=== PATIENT | male | born 1985 | race Hispanic/Latino ===

== ENCOUNTER 2018-10-17 14:33 | Emergency (ER) | payer OTHER ==
[~2018-10-17 14:33] MED LIST: CIPR-278 PO; METR500T PO; TRAM50TA2 PO
[2018-10-17] MEDS ORDERED: CEPHALEXIN 500 MG CAPSULE ONE (14:59)
[2018-10-17] MEDS ORDERED: SULFAMETHOX-TMP DS 800/160 TAB ONE (15:00)
[2018-10-17] MEDS ORDERED: HYDROCODONE/ACETAMINOPHEN 10/325 MG TAB ONE (15:00)
[2018-10-17] MEDS ORDERED: LIDOCAINE HCL/EPINEPHRINE 50 ML VIAL IJ ONE (15:02)
== END 2018-10-17 16:12 | disposition home or self-care (01) ==
LOC: EDH 14:33
DX: L03.221 Cellulitis of neck (principal); L02.11 Cutaneous abscess of neck; Z91.013 Allergy to seafood
CPT/HCPCS: 10061

== ENCOUNTER 2021-01-05 23:51 | Emergency (ER) | payer OTHER ==
[2021-01-06] MEDS ORDERED: SODIUM CHLORIDE 0.9% 1000ML 1,000 ML IV ONE (01:04)
[2021-01-06] MEDS ORDERED: ACETAMINOPHEN EXTRA STRENGTH 500 MG TABLET ONE (01:04)
[2021-01-06 01:33] LABS: BASOPHILS % (AUTO) 0.2 % (0.0-5.0); EOSINOPHILS % (AUTO) 0.3 % (0.0-8.0); HEMATOCRIT 39.3 % (42-54); LYMPHOCYTES % (AUTO) 15.8 % (21.0-51.0); MEAN CORPUSCULAR HEMOGLOBIN 28.3 pg (27.0-33.0); MEAN CORPUSCULAR HGB CONC 33.6 g/dL (32.0-36.0); MEAN CORPUSCULAR VOLUME 84.3 fL (79-99); MONOCYTES % (AUTO) 7.4 % (3.0-13.0); NEUTROPHILS % (AUTO) 75.9 % (40.0-77.0); PLATELET COUNT (AUTO) 342 K/uL (130-400); RED BLOOD CELL COUNT(AUTO) 4.66 MIL/uL (4.50-6.20)
[2021-01-06 01:43] LABS: CREATININE 0.9 mg/dL (0.5-1.5); POTASSIUM 3.2 mmol/L (3.5-5.1)
[2021-01-06 01:48] LABS: ALBUMIN 2.9 g/dL (3.5-5.0); BILIRUBIN,TOTAL 0.4 mg/dL (0.2-1.0); TOTAL PROTEIN, SERUM 8.5 g/dL (6.0-8.3)
[2021-01-06] MEDS ORDERED: KETOROLAC TROMETHAMINE 30MG/ML ONE (02:02)
[2021-01-06] MEDS ORDERED: POTASSIUM BICARB/CIT AC 25 MEQ TABLET.EFF ONE (02:02)
[2021-01-06 02:08] LABS: APPEARANCE,URINE Clear (CLEAR); BILIRUBIN,URINE Negative (NEGATIVE); COLOR,URINE Yellow (YELLOW); GLUCOSE, URINE (UA) Negative (NEGATIVE); KETONES,URINE Negative (NEGATIVE); LEUKOCYTE ESTERASE ,URINE Trace (NEGATIVE); NITRATE,URINE Negative (NEGATIVE); OCCULT BLOOD,URINE Trace (NEGATIVE); PH,URINE 6.5 (5.0-8.0); PROTEIN,URINE Trace mg/dL (NEGATIVE)
[2021-01-06] MEDS ORDERED: AMPICILLIN SODIUM/SULBACTAM NA 1.5GM VIAL ONE (02:10)
[2021-01-06 02:22] LABS: BACTERIA,URINE Rare /HPF (None Seen); SQUAMOUS EPITHELIAL CELL,UR 0-2 /HPF (0-2); WBC,URINE 0-1 /HPF (0-1)
== END 2021-01-06 02:48 | disposition home or self-care (01) ==
LOC: EDH 23:51
DX: J06.0 Acute laryngopharyngitis (principal); E87.6 Hypokalemia; H66.003 Acute suppurative otitis media without spontaneous rupture of ear drum, bilateral; R42 Dizziness and giddiness; Z20.822 Contact with and (suspected) exposure to COVID-19; Z91.013 Allergy to seafood; Z72.0 Tobacco use; Z98.890 Other specified postprocedural states
CPT/HCPCS: 36415; 80053; 81001; 83605; 85025; 87040 ×2; 87426; 87880; 96361; 96365; 96375; 99284; J0295; J1885; J7030; U0003

== ENCOUNTER → 2021-08-18 | Emergency (ER) | payer OTHER, SELFPAY ==
[~2021-08-18] VITALS: Ht 160 cm; Wt 177.8 kg
[~2021-08-18] MED LIST changes: +CEPH500B PO; +CEPHALEXIN 500 MG CAPSULE PO ONE; +SULF1TAB42 PO; +SULFAMETHOX-TMP DS 800/160 TAB PO SCH
[2021-08-18 17:19] VITALS: BP 146/100
[2021-08-18 18:03] LABS: BASOPHILS % (AUTO) 0.2 % (0.0-5.0); EOSINOPHILS % (AUTO) 0.7 % (0.0-8.0); LYMPHOCYTES % (AUTO) 18.3 % (21.0-51.0); MEAN CORPUSCULAR HEMOGLOBIN 27.6 pg (27.0-33.0); MEAN CORPUSCULAR HGB CONC 33.4 g/dL (32.0-36.0); MEAN CORPUSCULAR VOLUME 82.6 fL (79-99); MONOCYTES % (AUTO) 8.9 % (3.0-13.0); NEUTROPHILS % (AUTO) 71.5 % (40.0-77.0); PLATELET COUNT (AUTO) 267 K/uL (130-400); WHITE BLOOD COUNT (AUTO) 8.5 K/uL (4.8-10.8)
[2021-08-18 18:12] LABS: CREATININE 0.7 mg/dL (0.5-1.5); POTASSIUM 3.2 mmol/L (3.5-5.1)
== END | disposition home or self-care (01) ==
LOC: EDH 17:18
DX: L03.115 Cellulitis of right lower limb (principal); Z91.013 Allergy to seafood
CPT/HCPCS: 36415; 80048; 83605; 85025; 87040; 93971

== ENCOUNTER 2021-12-13 23:41 | Inpatient (IN) | payer SELFPAY ==
[~2021-12-13] VITALS: Ht 160 cm; Wt 181.0 kg
[~2021-12-13 23:41] MED LIST changes: -CEPHALEXIN 500 MG CAPSULE PO ONE; -SULFAMETHOX-TMP DS 800/160 TAB PO SCH
[2021-12-14 00:36] LABS: BASOPHILS % (AUTO) 0.3 % (0.0-5.0); EOSINOPHILS % (AUTO) 2.3 % (0.0-8.0); HEMATOCRIT 39.1 % (42-54); LYMPHOCYTES % (AUTO) 18.6 % (21.0-51.0); MEAN CORPUSCULAR HEMOGLOBIN 28.7 pg (27.0-33.0); MEAN CORPUSCULAR VOLUME 84.3 fL (79-99); MONOCYTES % (AUTO) 9.8 % (3.0-13.0); NEUTROPHILS % (AUTO) 68.6 % (40.0-77.0); PLATELET COUNT (AUTO) 302 K/uL (130-400); RED BLOOD CELL COUNT(AUTO) 4.64 MIL/uL (4.50-6.20); RED CELL DISTRIBUTION WIDTH 14.4 % (11.0-15.5); WHITE BLOOD COUNT (AUTO) 9.5 K/uL (4.8-10.8)
[2021-12-14 00:40] LABS: APPEARANCE,URINE Clear (CLEAR); BILIRUBIN,URINE Negative (NEGATIVE); COLOR,URINE Yellow (YELLOW); GLUCOSE, URINE (UA) Negative (NEGATIVE); KETONES,URINE Negative (NEGATIVE); LEUKOCYTE ESTERASE ,URINE Negative (NEGATIVE); NITRATE,URINE Negative (NEGATIVE); OCCULT BLOOD,URINE Nonhemolyzed Trace (NEGATIVE); PROTEIN,URINE POS 1+ mg/dL (NEGATIVE)
[2021-12-14 00:43] LABS: CREATININE 0.8 mg/dL (0.5-1.5)
[2021-12-14 00:48] LABS: ALBUMIN 2.8 g/dL (3.5-5.0); BILIRUBIN,TOTAL 0.3 mg/dL (0.2-1.0); TOTAL PROTEIN, SERUM 8.5 g/dL (6.0-8.3)
[2021-12-14 00:59] LABS: BACTERIA,URINE None Seen /HPF (None Seen); MUCUS,URINE Rare LPF (None Seen); RBC,URINE 0-1 /HPF (0-1); SQUAMOUS EPITHELIAL CELL,UR Few /HPF (0-2); WBC,URINE None Seen /HPF (0-1)
[2021-12-14] MEDS ORDERED: POTASSIUM BICARB/CIT AC 25 MEQ TABLET.EFF ONE (01:08)
[2021-12-14] MEDS ORDERED: CEFTRIAXONE 2GM VIAL ONE (01:09)
[2021-12-14] MEDS ORDERED: CEFTRIAXONE 2GM VIAL IVP ONE (01:10)
[2021-12-14] MEDS ORDERED: POTASSIUM BICARB/CIT AC 25 MEQ TABLET.EFF PO ONE (01:30)
[2021-12-14] MEDS ORDERED: ONDANSETRON 4MG INJ IV PRN (04:00)
[2021-12-14] MEDS ORDERED: ACETAMINOPHEN 325 MG TAB PO PRN ×2 (04:00)
[2021-12-14] MEDS ORDERED: MORPHINE 2 MG SYG IV PRN (04:00)
[2021-12-14] MEDS: 0.9%NACL 1000ML 1,000 ML IV SCH ×2 (05:26→14:42)
[2021-12-14 05:49] LABS: ALBUMIN 2.6 g/dL (3.5-5.0); BILIRUBIN,TOTAL 0.2 mg/dL (0.2-1.0); CREATININE 0.8 mg/dL (0.5-1.5); POTASSIUM 3.5 mmol/L (3.5-5.1); TOTAL PROTEIN, SERUM 7.9 g/dL (6.0-8.3)
[2021-12-14] MEDS: ZOSYN 3.375GM+NS 50ML 50 ML IV SCH ×3 (09:53→22:03)
[2021-12-14 17:25] VITALS: BP 120/67
[2021-12-14 18:36] LABS: HEMATOCRIT 35.6 % (42-54); MEAN CORPUSCULAR HEMOGLOBIN 28.2 pg (27.0-33.0); MEAN CORPUSCULAR HGB CONC 33.1 g/dL (32.0-36.0); MEAN CORPUSCULAR VOLUME 85.2 fL (79-99); RED BLOOD CELL COUNT(AUTO) 4.18 MIL/uL (4.50-6.20); RED CELL DISTRIBUTION WIDTH 14.3 % (11.0-15.5); WHITE BLOOD COUNT (AUTO) 8.6 K/uL (4.8-10.8)
[2021-12-14 20:00] VITALS: BP 122/70
[2021-12-15] VITALS: BP 116/69
[2021-12-15] MEDS: 0.9%NACL 1000ML 1,000 ML IV SCH ×4 (00:39→23:28)
[2021-12-15 04:00] VITALS: BP 112/68
[2021-12-15 05:09] LABS: BASOPHILS % (AUTO) 0.2 % (0.0-5.0); EOSINOPHILS % (AUTO) 2.3 % (0.0-8.0); HEMATOCRIT 36.1 % (42-54); LYMPHOCYTES % (AUTO) 28.2 % (21.0-51.0); MEAN CORPUSCULAR HEMOGLOBIN 27.6 pg (27.0-33.0); MEAN CORPUSCULAR HGB CONC 32.7 g/dL (32.0-36.0); MEAN CORPUSCULAR VOLUME 84.3 fL (79-99); MONOCYTES % (AUTO) 9.1 % (3.0-13.0); NEUTROPHILS % (AUTO) 59.8 % (40.0-77.0); PLATELET COUNT (AUTO) 337 K/uL (130-400); RED BLOOD CELL COUNT(AUTO) 4.28 MIL/uL (4.50-6.20); RED CELL DISTRIBUTION WIDTH 14.2 % (11.0-15.5); WHITE BLOOD COUNT (AUTO) 8.4 K/uL (4.8-10.8)
[2021-12-15] MEDS: ZOSYN 3.375GM+NS 50ML 50 ML IV SCH ×2 (05:19→14:18)
[2021-12-15 05:22] LABS: CREATININE 0.8 mg/dL (0.5-1.5); POTASSIUM 3.2 mmol/L (3.5-5.1)
[2021-12-15 08:00] VITALS: BP 107/69
[2021-12-15] MEDS ORDERED: POTASSIUM CHLORIDE 20MEQ/100ML 100 ML IV PRN (09:00)
[2021-12-15] MEDS ORDERED: LIDOCAINE HCL-MPF 1% 2ML VIAL IV PRN (09:00)
[2021-12-15] MEDS ORDERED: POTASSIUM CHLORIDE 10% ELIXIR 20 MEQ/15 ML UDCUP PO PRN (09:00)
[2021-12-15] MEDS: KCL 20 MEQ ERTAB PO PRN ×3 (11:48→16:42)
[2021-12-15 12:00] VITALS: BP 120/79
[2021-12-15] MEDS ORDERED: VANCOMYCIN PROTOCOL PER PHARMACY IV SCH (15:00)
[2021-12-15] MEDS ORDERED: VANCOMYCIN 1.75GM/250ML NS IV SCH ×2 (15:20)
[2021-12-15] MEDS ORDERED: COMPOUND IV REFRIGERATED 1 EACH IVSOLN MISC PRN (15:30)
[2021-12-15 16:00] VITALS: BP 129/82
[2021-12-15 20:06] VITALS: BP 110/63
[2021-12-16] VITALS: BP 146/62
[2021-12-16] MEDS: VANCOMYCIN 1G 1.75 GM in 0.9% NACL 250ML 250 ML IV SCH ×3 (03:29→21:42)
[2021-12-16 04:00] VITALS: BP 115/57
[2021-12-16] MEDS: 0.9%NACL 1000ML 1,000 ML IV SCH ×2 (05:13→16:00)
[2021-12-16] MEDS: KCL 20 MEQ ERTAB PO PRN ×3 (05:43→11:45)
[2021-12-16 07:00] VITALS: BP_SYST 103; BP_SYST 117; BP_DIAS 50; BP_DIAS 64
[2021-12-16 11:00] VITALS: BP 126/61
[2021-12-16] MEDS: POTASSIUM CHLORIDE 10% ELIXIR 20 MEQ/15 ML UDCUP PO SCH (11:00)
[2021-12-16 15:00] VITALS: BP 109/43
[2021-12-16 22:05] VITALS: BP 149/87
[2021-12-17 01:38] VITALS: BP 102/69
[2021-12-17 04:55] VITALS: BP 128/72
[2021-12-17] MEDS: KCL 20 MEQ ERTAB PO PRN (06:09)
[2021-12-17 07:30] VITALS: BP 116/72
[2021-12-17] MEDS: VANCOMYCIN 1G 1.75 GM in 0.9% NACL 250ML 250 ML IV SCH (10:52)
[2021-12-17] MEDS: POTASSIUM CHLORIDE 10% ELIXIR 20 MEQ/15 ML UDCUP PO SCH (10:58)
[2021-12-17 11:00] VITALS: BP 104/80
== END 2021-12-17 16:16 | disposition home or self-care (01) | DRG 602 ==
LOC: EDH 23:41 → EDHIP 23:42 → 3DH 12-14 17:25
PROVIDERS: ADMIT Hospitalist; ATTEND Hospitalist
DX: L03.115 Cellulitis of right lower limb (principal); E43 Unspecified severe protein-calorie malnutrition; Z68.45 Body mass index [BMI] 70 or greater, adult; E87.6 Hypokalemia; E66.01 Morbid (severe) obesity due to excess calories; Z88.8 Allergy status to other drugs, medicaments and biological substances; Z82.5 Family history of asthma and other chronic lower respiratory diseases
CPT/HCPCS: 36415; 80048; 80053; 80202; 81001; 82948; 83605; 84132; 85025; 85027; 85651; 87040; 93971; G0378; J0696; J2543; J3370; J7030; J7050

== ENCOUNTER 2023-04-19 19:05 | Inpatient (IN) | payer OTHER ==
[~2023-04-19] VITALS: Ht 160 cm; Wt 162.1 kg
[~2023-04-19 19:05] MED LIST changes: +0.9%NACL 50ML IV SCH; -CEPH500B PO; -CIPR-278 PO; -METR500T PO; -SULF1TAB42 PO; -TRAM50TA2 PO
[2023-04-19] MEDS ORDERED: VANCOMYCIN KIT 1 GM/250 ML IV.KIT IV ONE (20:00)
[2023-04-19] MEDS ORDERED: ZOSYN 3.375GM +NS 50ML IVPB ONE (20:00)
[2023-04-19] MEDS ORDERED: 0.9%NACL 1000ML 1,000 ML IV ONE (20:00)
[2023-04-19 20:25] LABS: BASOPHILS # (AUTO) 0.09 K/uL (0.00-0.20); BASOPHILS % (AUTO) 0.7 % (0.0-5.0); EOSINOPHILS # (AUTO) 0.07 K/uL (0.00-0.70); EOSINOPHILS % (AUTO) 0.5 % (0.0-8.0); HEMATOCRIT 33.3 % (42-54); IMMATURE GRANULOCYTE ABSOLUTE 0.21 K/uL (0-1); LYMPHOCYTES # (AUTO) 0.4 K/uL (1.0-4.8); LYMPHOCYTES % (AUTO) 2.8 % (21.0-51.0); MEAN CORPUSCULAR HGB CONC 34.5 g/dL (32.0-36.0); MEAN CORPUSCULAR VOLUME 83.9 fL (79-99); MONOCYTES # (AUTO) 0.8 K/uL (0.1-1.0); MONOCYTES % (AUTO) 5.4 % (3.0-13.0); NEUTROPHILS # (AUTO) 12.3 K/uL (1.8-7.7); NEUTROPHILS % (AUTO) 89.1 % (40.0-77.0); PLATELET COUNT (AUTO) 276 K/uL (130-400); RED BLOOD CELL COUNT(AUTO) 3.97 MIL/uL (4.50-6.20); RED CELL DISTRIBUTION WIDTH 13.8 % (11.0-15.5); WHITE BLOOD COUNT (AUTO) 13.8 K/uL (4.8-10.8)
[2023-04-19 20:35] LABS: CREATININE 2.6 mg/dL (0.5-1.5)
[2023-04-19 20:39] LABS: BILIRUBIN,TOTAL 0.6 mg/dL (0.2-1.0); TOTAL PROTEIN, SERUM 7.2 g/dL (6.0-8.3)
[2023-04-19] MEDS ORDERED: POTASSIUM BICARB/CIT AC 25 MEQ TABLET.EFF PO ONE (21:30)
[2023-04-19] MEDS ORDERED: MORPHINE 4 MG SYG IVP ONE (22:00)
[2023-04-19] MEDS ORDERED: KETOROLAC 60 MG VIAL (30MG/ML) IM ONE (22:00)
[2023-04-19] MEDS ORDERED: ONDANSETRON 4MG INJ IVP ONE (22:00)
[2023-04-20] VITALS (68 sets, daily range): BP systolic 88–148; BP diastolic 41–78; PULSE 90–134; RESP 14–90; O2SAT 92–98
[2023-04-20] MEDS ORDERED: GLUCAGON 1MG KIT 1 MG ML IM PRN
[2023-04-20] MEDS ORDERED: DEXTROSE 50%-WATER 50 ML DISP.SYRIN IV PRN
[2023-04-20] MEDS ORDERED: LACTATED RINGERS 1000ML 1,000 ML IV SCH
[2023-04-20] MEDS ORDERED: ZOSYN 3.375GM +NS 50ML IVPB SCH
[2023-04-20] MEDS ORDERED: VANCOMYCIN PROTOCOL PER PHARMACY IV SCH
[2023-04-20 02:50] LABS: SARS-CoV-2, RNA, NAAT NEGATIVE SARS CoV-2 (NEGATIVE)
[2023-04-20] MEDS: MORPHINE 2 MG SYG IVP PRN ×3 (03:27→21:32)
[2023-04-20 03:44] LABS: BASOPHILS % (AUTO) 0.7 % (0.0-5.0); EOSINOPHILS # (AUTO) 0.11 K/uL (0.00-0.70); EOSINOPHILS % (AUTO) 0.8 % (0.0-8.0); HEMATOCRIT 33.6 % (42-54); IMMATURE GRANULOCYTE ABSOLUTE 0.12 K/uL (0-1); LYMPHOCYTES # (AUTO) 0.5 K/uL (1.0-4.8); LYMPHOCYTES % (AUTO) 3.7 % (21.0-51.0); MEAN CORPUSCULAR HEMOGLOBIN 29.1 pg (27.0-33.0); MEAN CORPUSCULAR HGB CONC 34.2 g/dL (32.0-36.0); MEAN CORPUSCULAR VOLUME 85.1 fL (79-99); MONOCYTES # (AUTO) 1.2 K/uL (0.1-1.0); MONOCYTES % (AUTO) 8.7 % (3.0-13.0); NEUTROPHILS # (AUTO) 11.8 K/uL (1.8-7.7); NEUTROPHILS % (AUTO) 85.2 % (40.0-77.0); PLATELET COUNT (AUTO) 284 K/uL (130-400); RED BLOOD CELL COUNT(AUTO) 3.95 MIL/uL (4.50-6.20); RED CELL DISTRIBUTION WIDTH 14.1 % (11.0-15.5); WHITE BLOOD COUNT (AUTO) 13.9 K/uL (4.8-10.8)
[2023-04-20 03:57] LABS: INR 1.19 (0.85-1.15); PROTHROMBIN TIME 13.6 SEC (9.6-11.6)
[2023-04-20 03:58] LABS: PARTIAL THROMBOPLASTIN TIME 28.8 SEC (26.3-35.5)
[2023-04-20 04:04] LABS: BILIRUBIN,TOTAL 0.7 mg/dL (0.2-1.0); CREATININE 3.5 mg/dL (0.5-1.5); POTASSIUM 3.3 mmol/L (3.5-5.1); TOTAL PROTEIN, SERUM 6.4 g/dL (6.0-8.3)
[2023-04-20] MEDS: POTASSIUM CHLORIDE 20MEQ/100ML 100 ML IV PRN ×2 (04:14→06:03)
[2023-04-20] MEDS ORDERED: 0.9% NACL 500ML IV.SOLN 500 ML IV STA (05:35)
[2023-04-20] MEDS: 0.9%NACL 1000ML 1,000 ML IV SCH ×2 (05:43→14:08)
[2023-04-20] MEDS: INSULIN HUMULIN R 100 UNIT/ML 3ML SQ SCH ×4 (06:15→21:00)
[2023-04-20] MEDS ORDERED: PROPOFOL 10 MG/ML 20ML VIAL IV ONE ×2 (07:27→07:51)
[2023-04-20] MEDS ORDERED: MIDAZOLAM HCL 1 MG/ML 2ML VIAL ONE (07:27)
[2023-04-20] MEDS ORDERED: ONDANSETRON 4MG INJ ONE ×2 (07:28→09:16)
[2023-04-20] MEDS ORDERED: ROCURONIUM 10MG/1ML SYR 10 MG/ML ML ONE (07:28)
[2023-04-20] MEDS ORDERED: FENTANYL CITRATE PF 50 MCG/1 ML 2ML VIAL ONE (07:50)
[2023-04-20] MEDS ORDERED: PHENYLEPHRINE HCL 10 MG/ML 1ML VIAL IV ONE (08:23)
[2023-04-20] MEDS ORDERED: BUPIVACAINE/PF 0.25% 30ML VIAL IJ ONE (08:27)
[2023-04-20] MEDS ORDERED: COMPOUND IV REFRIGERATED 1 EACH IVSOLN MISC PRN (08:30)
[2023-04-20] MEDS ORDERED: SUGAMMADEX SODIUM 200 MG/2 ML VIAL IV ONE (08:48)
[2023-04-20] MEDS ORDERED: VANCOMYCIN 2GM/500 ML BAG 500 ML IV ONE (09:00)
[2023-04-20] MEDS ORDERED: MEPERIDINE-PF 25 MG/ML SYG ONE (09:16)
[2023-04-20] MEDS ORDERED: IPRATROPIUM/ALBUTEROL SULFATE 3 ML SOLUTION IH ONE ×2 (09:29→09:30)
[2023-04-20] MEDS ORDERED: CLINDAMYCIN IVPB 600MG/50ML 50 ML IV ONE (09:30)
[2023-04-20 09:42] LABS: HEMOGLOBIN A1C 5.9 % (4.0-6.0)
[2023-04-20 10:08] LABS: CRP QUANTITATIVE 394.1 mg/L (0.00-9.0)
[2023-04-20] MEDS ORDERED: 0.9%NACL 1000ML 1,000 ML IV SCH (11:30)
[2023-04-20] MEDS ORDERED: NOREPINEPHRIN 4MG/NS 250ML 250 ML IV SCH (12:00)
[2023-04-20] MEDS: MEROPENEM 500 MG in 0.9%NACL 100ML 100 ML IV SCH ×2 (13:06→21:04)
[2023-04-20] MEDS: ZYVOX 600 MG TAB PO SCH (13:21)
[2023-04-20] MEDS: MAGNESIUM 2GM PREMIX 50ML 50 ML IV PRN ×2 (13:21→21:33)
[2023-04-20] MEDS ORDERED: FLUCONAZOLE 200 MG/NS 100 ML IV SCH (14:00)
[2023-04-20 15:00] LABS: BILIRUBIN,URINE NEGATIVE (NEGATIVE); GLUCOSE, URINE (UA) 70 mg/dL (NEGATIVE); KETONES,URINE NEGATIVE (NEGATIVE); LEUKOCYTE ESTERASE ,URINE 25 Leu/uL (NEGATIVE); NITRATE,URINE NEGATIVE (NEGATIVE); OCCULT BLOOD,URINE LARGE (NEGATIVE); PH,URINE 5.5 (5.0-8.0); PROTEIN,URINE 100 mg/dL (NEGATIVE); UROBILINOGEN,URINE 3 mg/dL (0.2-1.0)
[2023-04-20 15:03] LABS: CREATININE,URINE RANDOM 217 mg/dL (30-135); SODIUM,URINE RANDOM 41 mmol/l (40-220)
[2023-04-20] MEDS: BENZOCAINE/MENTH/CETYLPYRD CL 1 EACH LOZENGE MM PRN ×2 (15:06→21:32)
[2023-04-20 15:08] LABS: ADD UA MICROSCOPIC YES; APPEARANCE,URINE CLOUDY (CLEAR); COLOR,URINE BROWN (YELLOW)
[2023-04-20 15:22] LABS: BACTERIA,URINE MOD /HPF (None Seen); MUCUS,URINE RARE LPF (None Seen); RBC,URINE 51-100 /HPF (0-1); SQUAMOUS EPITHELIAL CELL,UR MANY /HPF (0-2); WBC,URINE 51-100 /HPF (0-1)
[2023-04-20 18:54] LABS: MAGNESIUM 1.9 mg/dL (1.80-2.40); POTASSIUM 3.4 mmol/L (3.5-5.1)
[2023-04-21] VITALS (36 sets, daily range): BP systolic 92–145; BP diastolic 41–100; PULSE 93–115; RESP 12–25; O2SAT 97–99
[2023-04-21] MEDS: 0.9%NACL 1000ML 1,000 ML IV SCH ×3 (00:55→20:46)
[2023-04-21] MEDS: ZYVOX 600 MG TAB PO SCH ×2 (02:09→13:42)
[2023-04-21 04:39] LABS: BASOPHILS # (AUTO) 0.08 K/uL (0.00-0.20); BASOPHILS % (AUTO) 0.7 % (0.0-5.0); EOSINOPHILS # (AUTO) 0.05 K/uL (0.00-0.70); EOSINOPHILS % (AUTO) 0.5 % (0.0-8.0); HEMATOCRIT 30.5 % (42-54); IMMATURE GRANULOCYTE ABSOLUTE 0.08 K/uL (0-1); LYMPHOCYTES # (AUTO) 0.5 K/uL (1.0-4.8); LYMPHOCYTES % (AUTO) 4.4 % (21.0-51.0); MEAN CORPUSCULAR HEMOGLOBIN 28.4 pg (27.0-33.0); MEAN CORPUSCULAR HGB CONC 32.5 g/dL (32.0-36.0); MEAN CORPUSCULAR VOLUME 87.4 fL (79-99); MONOCYTES # (AUTO) 0.8 K/uL (0.1-1.0); MONOCYTES % (AUTO) 7.5 % (3.0-13.0); NEUTROPHILS # (AUTO) 9.4 K/uL (1.8-7.7); NEUTROPHILS % (AUTO) 86.2 % (40.0-77.0); PLATELET COUNT (AUTO) 275 K/uL (130-400); RED BLOOD CELL COUNT(AUTO) 3.49 MIL/uL (4.50-6.20); RED CELL DISTRIBUTION WIDTH 15.3 % (11.0-15.5); WHITE BLOOD COUNT (AUTO) 10.9 K/uL (4.8-10.8)
[2023-04-21 05:05] LABS: ALBUMIN 1.7 g/dL (3.5-5.0); BILIRUBIN,TOTAL 0.6 mg/dL (0.2-1.0); CREATININE 4.3 mg/dL (0.5-1.5); MAGNESIUM 2.2 mg/dL (1.80-2.40); PHOSPHORUS 2.9 mg/dL (2.5-4.9); POTASSIUM 3.4 mmol/L (3.5-5.1); THYROID STIMULATING HORMONE 2.57 uIU/mL (0.36-3.74); TOTAL PROTEIN, SERUM 6.8 g/dL (6.0-8.3)
[2023-04-21 05:26] LABS: CRP QUANTITATIVE 357.5 mg/L (0.00-9.0)
[2023-04-21] MEDS: INSULIN HUMULIN R 100 UNIT/ML 3ML SQ SCH ×4 (07:30→21:00)
[2023-04-21 07:32] LABS: INR 1.06 (0.85-1.15); PROTHROMBIN TIME 12.2 SEC (9.6-11.6)
[2023-04-21] MEDS ORDERED: VANCOMYCIN 1.25 GM/250 ML BAG 250 ML IV SCH (09:00)
[2023-04-21 09:38] LABS: ABG BASE EXCESS -6.1 mmol/L (-2.0-3.0); ABG HCO3 18.4 mmol/L (21.0-28.0); ABG OXYGEN SATURATION 96.7 % (95.0-99.0); ABG PCO2 34 mmHg (35-48); ABG PH 7.353 (7.350-7.450); PO2, ARTERIAL BG 91.4 mmHg (83.0-108.0); VENT MODE, BG 2L NC (ROOM AIR)
[2023-04-21] MEDS: Vitamin B Complex/Vit C/Folic Acid PO SCH (09:44)
[2023-04-21] MEDS: FLUCONAZOLE 200 MG/NS 100 ML 100 ML IV SCH (09:44)
[2023-04-21] MEDS: PANTOPRAZOLE 40 MG/VIAL IVP SCH (09:44)
[2023-04-21] MEDS: MEROPENEM 500 MG in 0.9%NACL 100ML 100 ML IV SCH ×2 (09:45→22:02)
[2023-04-21] MEDS: ENOXAPARIN SODIUM 30 MG/0.3 ML SQ SCH (09:45)
[2023-04-21] MEDS ORDERED: SODIUM BICARB 8.4% 50ML SYRINGE IVP SCH (10:30)
[2023-04-21] MEDS ORDERED: SODIUM BICARB 50MEQ 50ML VIAL IV ONE (11:00)
[2023-04-21] MEDS: ONDANSETRON 4MG INJ IVP PRN ×2 (12:12→22:06)
[2023-04-22] VITALS (34 sets, daily range): BP systolic 82–151; BP diastolic 37–90; PULSE 79–128; RESP 11–29; O2SAT 97–99
[2023-04-22] MEDS: ZYVOX 600 MG TAB PO SCH (02:30)
[2023-04-22 04:16] LABS: BASOPHILS # (AUTO) 0.08 K/uL (0.00-0.20); BASOPHILS % (AUTO) 0.6 % (0.0-5.0); EOSINOPHILS # (AUTO) 0.02 K/uL (0.00-0.70); EOSINOPHILS % (AUTO) 0.1 % (0.0-8.0); HEMATOCRIT 29.8 % (42-54); IMMATURE GRANULOCYTE ABSOLUTE 0.37 K/uL (0-1); LYMPHOCYTES # (AUTO) 0.8 K/uL (1.0-4.8); LYMPHOCYTES % (AUTO) 5.6 % (21.0-51.0); MEAN CORPUSCULAR HEMOGLOBIN 28.7 pg (27.0-33.0); MEAN CORPUSCULAR HGB CONC 33.6 g/dL (32.0-36.0); MEAN CORPUSCULAR VOLUME 85.4 fL (79-99); MONOCYTES % (AUTO) 6.9 % (3.0-13.0); NEUTROPHILS # (AUTO) 11.8 K/uL (1.8-7.7); NEUTROPHILS % (AUTO) 84.2 % (40.0-77.0); PLATELET COUNT (AUTO) 321 K/uL (130-400); RED BLOOD CELL COUNT(AUTO) 3.49 MIL/uL (4.50-6.20); RED CELL DISTRIBUTION WIDTH 15.3 % (11.0-15.5)
[2023-04-22] MEDS: INSULIN HUMULIN R 100 UNIT/ML 3ML SQ SCH ×4 (04:16→21:00)
[2023-04-22 04:35] LABS: ALBUMIN 1.6 g/dL (3.5-5.0); BILIRUBIN,TOTAL 0.8 mg/dL (0.2-1.0); CREATININE 3.4 mg/dL (0.5-1.5); MAGNESIUM 2.6 mg/dL (1.80-2.40); TOTAL PROTEIN, SERUM 6.9 g/dL (6.0-8.3)
[2023-04-22 04:37] LABS: POTASSIUM 2.6 mmol/L (3.5-5.1)
[2023-04-22] MEDS: POTASSIUM CHLORIDE 20MEQ/100ML 100 ML IV PRN ×6 (04:41→22:35)
[2023-04-22] MEDS: 0.9%NACL 1000ML 1,000 ML IV SCH ×2 (05:47→17:18)
[2023-04-22] MEDS: PANTOPRAZOLE 40 MG/VIAL IVP SCH (08:11)
[2023-04-22] MEDS: FLUCONAZOLE 200 MG/NS 100 ML 100 ML IV SCH (08:11)
[2023-04-22] MEDS: SODIUM HYPOCHLORITE 0.125% 473 ML SOLUTION TP SCH (08:11)
[2023-04-22] MEDS: Vitamin B Complex/Vit C/Folic Acid PO SCH (08:12)
[2023-04-22] MEDS: ENOXAPARIN SODIUM 30 MG/0.3 ML SQ SCH (08:12)
[2023-04-22] MEDS: MEROPENEM 500 MG in 0.9%NACL 100ML 100 ML IV SCH ×2 (09:02→21:17)
[2023-04-22] MEDS: LINEZOLID 600 MG/ISO-OSM 300 ML IV SCH ×2 (10:41→23:30)
[2023-04-22] MEDS: MORPHINE 2 MG SYG IVP PRN ×2 (10:43→16:44)
[2023-04-22 11:29] LABS: CRP QUANTITATIVE 232.5 mg/L (0.00-9.0)
[2023-04-22] MEDS ORDERED: MIDAZOLAM HCL 1 MG/ML 2ML VIAL ONE (12:32)
[2023-04-22] MEDS ORDERED: FENTANYL CITRATE PF 50 MCG/1 ML 2ML VIAL ONE (12:40)
[2023-04-22] MEDS ORDERED: KETOROLAC 30MG VIAL (30MG/ML) ONE (12:43)
[2023-04-22] MEDS ORDERED: SUCCINYLCHOLINE 200MG/10ML SYR ONE (12:51)
[2023-04-22] MEDS ORDERED: ROCURONIUM 10MG/1ML SYR 10 MG/ML ML ONE (12:57)
[2023-04-22] MEDS: METOCLOPRAMIDE 10 MG/2 ML VIAL IVP SCH (21:17)
[2023-04-23] VITALS (14 sets, daily range): BP systolic 94–150; BP diastolic 43–84; PULSE 92–102; RESP 15–22; O2SAT 97–98
[2023-04-23] MEDS: 0.9%NACL 1000ML 1,000 ML IV SCH ×3 (03:28→23:18)
[2023-04-23 04:46] LABS: BASOPHILS # (AUTO) 0.07 K/uL (0.00-0.20); BASOPHILS % (AUTO) 0.6 % (0.0-5.0); EOSINOPHILS # (AUTO) 0.12 K/uL (0.00-0.70); HEMATOCRIT 29.1 % (42-54); LYMPHOCYTES # (AUTO) 1.1 K/uL (1.0-4.8); LYMPHOCYTES % (AUTO) 8.8 % (21.0-51.0); MEAN CORPUSCULAR HEMOGLOBIN 28.7 pg (27.0-33.0); MEAN CORPUSCULAR VOLUME 87.1 fL (79-99); MONOCYTES # (AUTO) 1.1 K/uL (0.1-1.0); MONOCYTES % (AUTO) 8.8 % (3.0-13.0); NEUTROPHILS # (AUTO) 9.3 K/uL (1.8-7.7); NEUTROPHILS % (AUTO) 73.6 % (40.0-77.0); PLATELET COUNT (AUTO) 349 K/uL (130-400); RED BLOOD CELL COUNT(AUTO) 3.34 MIL/uL (4.50-6.20); RED CELL DISTRIBUTION WIDTH 16.2 % (11.0-15.5); WHITE BLOOD COUNT (AUTO) 12.6 K/uL (4.8-10.8)
[2023-04-23 04:55] LABS: CREATININE 2.2 mg/dL (0.5-1.5); POTASSIUM 3.1 mmol/L (3.5-5.1)
[2023-04-23] MEDS: POTASSIUM CHLORIDE 20MEQ/100ML 100 ML IV PRN ×4 (05:14→23:12)
[2023-04-23] MEDS: INSULIN HUMULIN R 100 UNIT/ML 3ML SQ SCH ×4 (06:52→21:00)
[2023-04-23] MEDS: METOCLOPRAMIDE 10 MG/2 ML VIAL IVP SCH ×2 (08:35→21:46)
[2023-04-23] MEDS: Vitamin B Complex/Vit C/Folic Acid PO SCH (08:35)
[2023-04-23] MEDS: ENOXAPARIN SODIUM 30 MG/0.3 ML SQ SCH (08:35)
[2023-04-23] MEDS: PANTOPRAZOLE 40 MG/VIAL IVP SCH (08:35)
[2023-04-23] MEDS: SODIUM HYPOCHLORITE 0.125% 473 ML SOLUTION TP SCH (08:36)
[2023-04-23] MEDS: FLUCONAZOLE 200 MG/NS 100 ML 100 ML IV SCH (08:36)
[2023-04-23] MEDS: LINEZOLID 600 MG/ISO-OSM 300 ML IV SCH ×2 (10:56→21:46)
[2023-04-23] MEDS: MEROPENEM 500 MG in 0.9%NACL 100ML 100 ML IV SCH ×2 (10:56→23:08)
[2023-04-23] MEDS: MORPHINE 2 MG SYG IVP PRN (11:50)
[2023-04-23] MEDS: HYDROCODONE/ACETAMINOPHEN 7.5/325 MG TAB PO PRN (13:28)
[2023-04-23 14:54] LABS: MAGNESIUM 2.2 mg/dL (1.80-2.40)
[2023-04-23 15:01] LABS: POTASSIUM 2.9 mmol/L (3.5-5.1)
[2023-04-24] VITALS (8 sets, daily range): BP systolic 135–153; BP diastolic 63–91; PULSE 89–102; RESP 16–22; O2SAT 96–98
[2023-04-24] MEDS: POTASSIUM CHLORIDE 20MEQ/100ML 100 ML IV PRN (01:08)
[2023-04-24] MEDS: MORPHINE 2 MG SYG IVP PRN ×2 (05:07→17:12)
[2023-04-24] MEDS: INSULIN HUMULIN R 100 UNIT/ML 3ML SQ SCH ×4 (05:55→20:44)
[2023-04-24] MEDS: Vitamin B Complex/Vit C/Folic Acid PO SCH (08:18)
[2023-04-24] MEDS: 0.9%NACL 1000ML 1,000 ML IV SCH ×2 (08:18→18:55)
[2023-04-24] MEDS: FLUCONAZOLE 200 MG/NS 100 ML 100 ML IV SCH (08:18)
[2023-04-24] MEDS: METOCLOPRAMIDE 10 MG/2 ML VIAL IVP SCH ×2 (08:18→20:18)
[2023-04-24] MEDS: PANTOPRAZOLE 40 MG/VIAL IVP SCH (08:18)
[2023-04-24] MEDS: ENOXAPARIN SODIUM 30 MG/0.3 ML SQ SCH (08:18)
[2023-04-24] MEDS: SODIUM HYPOCHLORITE 0.125% 473 ML SOLUTION TP SCH (08:19)
[2023-04-24 09:27] LABS: HEMATOCRIT 31.1 % (42-54); MEAN CORPUSCULAR HEMOGLOBIN 28.5 pg (27.0-33.0); MEAN CORPUSCULAR HGB CONC 32.5 g/dL (32.0-36.0); MEAN CORPUSCULAR VOLUME 87.9 fL (79-99); RED BLOOD CELL COUNT(AUTO) 3.54 MIL/uL (4.50-6.20); RED CELL DISTRIBUTION WIDTH 15.9 % (11.0-15.5); WHITE BLOOD COUNT (AUTO) 17.3 K/uL (4.8-10.8)
[2023-04-24 09:43] LABS: ALBUMIN 1.6 g/dL (3.5-5.0); BILIRUBIN,TOTAL 0.5 mg/dL (0.2-1.0); CREATININE 1.1 mg/dL (0.5-1.5); POTASSIUM 3.1 mmol/L (3.5-5.1); TOTAL PROTEIN, SERUM 7.1 g/dL (6.0-8.3)
[2023-04-24] MEDS: LINEZOLID 600 MG/ISO-OSM 300 ML IV SCH ×2 (10:28→21:05)
[2023-04-24] MEDS: MEROPENEM 500 MG in 0.9%NACL 100ML 100 ML IV SCH ×2 (10:28→20:30)
[2023-04-24] MEDS: POTASSIUM CHLORIDE 10% ELIXIR 20 MEQ/15 ML UDCUP PO PRN (21:25)
[2023-04-25] MEDS: POTASSIUM CHLORIDE 10% ELIXIR 20 MEQ/15 ML UDCUP PO PRN ×3 (00:07→09:22)
[2023-04-25 00:13] VITALS: BP 107/53; PULSE 93; RESP 19
[2023-04-25] MEDS: 0.9%NACL 1000ML 1,000 ML IV SCH ×2 (00:58→15:11)
[2023-04-25] MEDS ORDERED: MORPHINE 2 MG SYG ONE (03:43)
[2023-04-25 04:09] VITALS: BP 129/63; PULSE 95; RESP 20
[2023-04-25] MEDS ORDERED: SODIUM HYPOCHLORITE 0.125% 473 ML SOLUTION TP SCH (05:00)
[2023-04-25] MEDS: INSULIN HUMULIN R 100 UNIT/ML 3ML SQ SCH ×4 (06:02→20:10)
[2023-04-25 08:00] VITALS: BP 119/57; PULSE 97; RESP 16
[2023-04-25] MEDS: SODIUM HYPOCHLORITE 0.125% 473 ML SOLUTION TP SCH ×2 (09:00→21:00)
[2023-04-25] MEDS: Vitamin B Complex/Vit C/Folic Acid PO SCH (09:22)
[2023-04-25] MEDS: FLUCONAZOLE 200 MG/NS 100 ML 100 ML IV SCH (09:22)
[2023-04-25] MEDS: ENOXAPARIN SODIUM 30 MG/0.3 ML SQ SCH (09:23)
[2023-04-25] MEDS: METOCLOPRAMIDE 10 MG/2 ML VIAL IVP SCH (09:23)
[2023-04-25] MEDS: PANTOPRAZOLE 40 MG/VIAL IVP SCH (09:23)
[2023-04-25] MEDS: HYDROCODONE/ACETAMINOPHEN 7.5/325 MG TAB PO PRN ×2 (09:43→22:06)
[2023-04-25] MEDS: MEROPENEM 500 MG in 0.9%NACL 100ML 100 ML IV SCH ×2 (10:15→21:50)
[2023-04-25] MEDS: LINEZOLID 600 MG/ISO-OSM 300 ML IV SCH ×2 (10:47→22:56)
[2023-04-25 12:00] VITALS: BP 127/60; PULSE 97; RESP 18
[2023-04-25 12:22] LABS: HEMATOCRIT 30.4 % (42-54); MEAN CORPUSCULAR HEMOGLOBIN 28.6 pg (27.0-33.0); MEAN CORPUSCULAR HGB CONC 32.2 g/dL (32.0-36.0); MEAN CORPUSCULAR VOLUME 88.6 fL (79-99); RED BLOOD CELL COUNT(AUTO) 3.43 MIL/uL (4.50-6.20); RED CELL DISTRIBUTION WIDTH 15.7 % (11.0-15.5); WHITE BLOOD COUNT (AUTO) 19.7 K/uL (4.8-10.8)
[2023-04-25 16:00] VITALS: BP 111/56; PULSE 103; RESP 18
[2023-04-25] MEDS: MORPHINE 2 MG SYG IVP PRN (18:42)
[2023-04-25 20:00] VITALS: BP 129/62; PULSE 95; RESP 24
[2023-04-25] MEDS ORDERED: COMPOUND IV MISC 1 EACH IVSOLN MISC PRN (21:30)
[2023-04-26] VITALS: BP 107/57; PULSE 98; RESP 24
[2023-04-26] MEDS: 0.9%NACL 1000ML 1,000 ML IV SCH ×2 (00:55→10:55)
[2023-04-26] MEDS: MORPHINE 2 MG SYG IVP PRN ×2 (03:12→16:13)
[2023-04-26 04:00] VITALS: BP 131/65; PULSE 96; RESP 24
[2023-04-26] MEDS: HYDROCODONE/ACETAMINOPHEN 7.5/325 MG TAB PO PRN ×2 (05:27→20:07)
[2023-04-26 05:42] LABS: BASOPHILS # (AUTO) 0.11 K/uL (0.00-0.20); BASOPHILS % (AUTO) 0.5 % (0.0-5.0); EOSINOPHILS # (AUTO) 0.45 K/uL (0.00-0.70); EOSINOPHILS % (AUTO) 2.2 % (0.0-8.0); HEMATOCRIT 30.3 % (42-54); IMMATURE GRANULOCYTE ABSOLUTE 1.96 K/uL (0-1); LYMPHOCYTES # (AUTO) 2.3 K/uL (1.0-4.8); MEAN CORPUSCULAR HEMOGLOBIN 28.3 pg (27.0-33.0); MEAN CORPUSCULAR VOLUME 88.3 fL (79-99); MONOCYTES # (AUTO) 0.9 K/uL (0.1-1.0); MONOCYTES % (AUTO) 4.3 % (3.0-13.0); NEUTROPHILS # (AUTO) 14.8 K/uL (1.8-7.7); NEUTROPHILS % (AUTO) 72.4 % (40.0-77.0); PLATELET COUNT (AUTO) 431 K/uL (130-400); RED BLOOD CELL COUNT(AUTO) 3.43 MIL/uL (4.50-6.20); RED CELL DISTRIBUTION WIDTH 15.5 % (11.0-15.5); WHITE BLOOD COUNT (AUTO) 20.5 K/uL (4.8-10.8)
[2023-04-26 06:14] LABS: CREATININE 0.9 mg/dL (0.5-1.5); PHOSPHORUS 3.2 mg/dL (2.5-4.9)
[2023-04-26 06:18] LABS: POTASSIUM 2.9 mmol/L (3.5-5.1)
[2023-04-26] MEDS: INSULIN HUMULIN R 100 UNIT/ML 3ML SQ SCH ×4 (06:23→20:05)
[2023-04-26] MEDS: KCL 20 MEQ ERTAB PO PRN (06:48)
[2023-04-26] MEDS: POTASSIUM CHLORIDE 20MEQ/100ML 100 ML IV PRN ×2 (06:48→14:32)
[2023-04-26 08:38] VITALS: BP 122/61; PULSE 92; RESP 20
[2023-04-26] MEDS: SODIUM HYPOCHLORITE 0.125% 473 ML SOLUTION TP SCH ×2 (09:00→20:08)
[2023-04-26] MEDS: FLUCONAZOLE 200 MG/NS 100 ML 100 ML IV SCH (10:04)
[2023-04-26] MEDS: PANTOPRAZOLE 40 MG/VIAL IVP SCH (10:05)
[2023-04-26] MEDS: ENOXAPARIN SODIUM 30 MG/0.3 ML SQ SCH (10:06)
[2023-04-26] MEDS: Vitamin B Complex/Vit C/Folic Acid PO SCH (10:50)
[2023-04-26] MEDS: MEROPENEM 500 MG in 0.9%NACL 100ML 100 ML IV SCH ×2 (10:50→20:08)
[2023-04-26 12:00] VITALS: BP 115/60; PULSE 92; RESP 20
[2023-04-26] MEDS: LINEZOLID 600 MG/ISO-OSM 300 ML IV SCH ×2 (12:27→20:15)
[2023-04-26 16:00] VITALS: BP 119/63; PULSE 95; RESP 20
[2023-04-26 20:00] VITALS: BP 113/70; PULSE 98; RESP 20
[2023-04-26] MEDS: KCL 20 MEQ ERTAB PO SCH (20:07)
[2023-04-26] MEDS: MAGNESIUM 2GM PREMIX 50ML 50 ML IV PRN (20:09)
[2023-04-27] VITALS (7 sets, daily range): BP systolic 103–143; BP diastolic 55–82; PULSE 95–105; RESP 20–22; O2SAT 99
[2023-04-27] MEDS: MORPHINE 2 MG SYG IVP PRN ×3 (03:13→22:41)
[2023-04-27] MEDS: 0.9%NACL 1000ML 1,000 ML IV SCH ×3 (03:13→20:11)
[2023-04-27] MEDS: HYDROCODONE/ACETAMINOPHEN 7.5/325 MG TAB PO PRN ×2 (05:42→13:52)
[2023-04-27 06:05] LABS: HEMATOCRIT 32.2 % (42-54); MEAN CORPUSCULAR HEMOGLOBIN 28.6 pg (27.0-33.0); MEAN CORPUSCULAR HGB CONC 33.2 g/dL (32.0-36.0); MEAN CORPUSCULAR VOLUME 86.1 fL (79-99); NUCLEATED RED BLOOD CELLS 0.1 % (0.0-0.19); RED BLOOD CELL COUNT(AUTO) 3.74 MIL/uL (4.50-6.20); RED CELL DISTRIBUTION WIDTH 15.5 % (11.0-15.5); WHITE BLOOD COUNT (AUTO) 18.7 K/uL (4.8-10.8)
[2023-04-27 06:26] LABS: ALBUMIN 1.7 g/dL (3.5-5.0); BILIRUBIN,TOTAL 0.3 mg/dL (0.2-1.0); CREATININE 0.8 mg/dL (0.5-1.5); MAGNESIUM 1.6 mg/dL (1.80-2.40); POTASSIUM 3.4 mmol/L (3.5-5.1); TOTAL PROTEIN, SERUM 7.8 g/dL (6.0-8.3)
[2023-04-27] MEDS: MAGNESIUM 2GM PREMIX 50ML 50 ML IV PRN ×2 (06:38→20:00)
[2023-04-27] MEDS: KCL 20 MEQ ERTAB PO PRN (06:38)
[2023-04-27] MEDS: INSULIN HUMULIN R 100 UNIT/ML 3ML SQ SCH ×4 (07:30→19:59)
[2023-04-27] MEDS: KCL 20 MEQ ERTAB PO SCH ×2 (08:58→19:59)
[2023-04-27] MEDS: FLUCONAZOLE 200 MG/NS 100 ML 100 ML IV SCH (08:58)
[2023-04-27] MEDS: PANTOPRAZOLE 40 MG/VIAL IVP SCH (08:58)
[2023-04-27] MEDS: Vitamin B Complex/Vit C/Folic Acid PO SCH (09:00)
[2023-04-27] MEDS: SODIUM HYPOCHLORITE 0.125% 473 ML SOLUTION TP SCH ×2 (09:00→19:59)
[2023-04-27] MEDS: ENOXAPARIN SODIUM 30 MG/0.3 ML SQ SCH (09:00)
[2023-04-27] MEDS: MEROPENEM 500 MG in 0.9%NACL 100ML 100 ML IV SCH ×2 (09:14→20:00)
[2023-04-27] MEDS: LINEZOLID 600 MG/ISO-OSM 300 ML IV SCH ×2 (11:03→20:00)
[2023-04-28] VITALS (9 sets, daily range): BP systolic 91–117; BP diastolic 48–72; PULSE 91–111; RESP 20; O2SAT 95–98
[2023-04-28] MEDS: 0.9%NACL 1000ML 1,000 ML IV SCH ×3 (02:55→22:55)
[2023-04-28] MEDS: ACETAMINOPHEN 325 MG TAB PO PRN (04:14)
[2023-04-28 05:33] LABS: HEMATOCRIT 31.4 % (42-54); MEAN CORPUSCULAR HEMOGLOBIN 28.4 pg (27.0-33.0); MEAN CORPUSCULAR HGB CONC 32.5 g/dL (32.0-36.0); MEAN CORPUSCULAR VOLUME 87.5 fL (79-99); RED BLOOD CELL COUNT(AUTO) 3.59 MIL/uL (4.50-6.20); WHITE BLOOD COUNT (AUTO) 15.1 K/uL (4.8-10.8)
[2023-04-28 05:51] LABS: ALBUMIN 1.8 g/dL (3.5-5.0); BILIRUBIN,TOTAL 0.3 mg/dL (0.2-1.0); CREATININE 0.8 mg/dL (0.5-1.5); MAGNESIUM 1.7 mg/dL (1.80-2.40); PHOSPHORUS 3.2 mg/dL (2.5-4.9); POTASSIUM 3.1 mmol/L (3.5-5.1); TOTAL PROTEIN, SERUM 7.7 g/dL (6.0-8.3)
[2023-04-28] MEDS: INSULIN HUMULIN R 100 UNIT/ML 3ML SQ SCH ×4 (06:07→21:00)
[2023-04-28] MEDS: KCL 20 MEQ ERTAB PO PRN (06:08)
[2023-04-28] MEDS: MAGNESIUM 2GM PREMIX 50ML 50 ML IV PRN (06:08)
[2023-04-28] MEDS: FLUCONAZOLE 200 MG/NS 100 ML 100 ML IV SCH (10:43)
[2023-04-28] MEDS: PANTOPRAZOLE 40 MG/VIAL IVP SCH (10:45)
[2023-04-28] MEDS: KCL 20 MEQ ERTAB PO SCH ×2 (10:47→22:10)
[2023-04-28] MEDS: Vitamin B Complex/Vit C/Folic Acid PO SCH (10:47)
[2023-04-28] MEDS: ENOXAPARIN SODIUM 30 MG/0.3 ML SQ SCH (11:12)
[2023-04-28] MEDS: LINEZOLID 600 MG/ISO-OSM 300 ML IV SCH (11:15)
[2023-04-28] MEDS: AMOX/CLAV 875/125MG TAB PO SCH (13:38)
[2023-04-28] MEDS: MORPHINE 2 MG SYG IVP PRN (16:26)
[2023-04-28 20:14] LABS: RETICULOCYTE % (AUTO) 2.11 % (0.42-2.23)
[2023-04-28 20:26] LABS: % IRON SATURATION 12.3 % (30-44)
[2023-04-28 20:52] LABS: URIC ACID 4.2 mg/dL (2.6-7.2)
[2023-04-29] VITALS (7 sets, daily range): BP systolic 106–118; BP diastolic 50–63; PULSE 82–103; RESP 19–20; O2SAT 96–97
[2023-04-29] MEDS: SODIUM HYPOCHLORITE 0.125% 473 ML SOLUTION TP SCH ×4 (02:00→08:00)
[2023-04-29] MEDS: AMOX/CLAV 875/125MG TAB PO SCH ×2 (02:18→16:04)
[2023-04-29] MEDS: MORPHINE 2 MG SYG IVP PRN ×2 (02:25→11:16)
[2023-04-29] MEDS: INSULIN HUMULIN R 100 UNIT/ML 3ML SQ SCH ×4 (06:39→21:00)
[2023-04-29 07:52] LABS: BASOPHILS # (AUTO) 0.03 K/uL (0.00-0.20); BASOPHILS % (AUTO) 0.2 % (0.0-5.0); EOSINOPHILS # (AUTO) 0.08 K/uL (0.00-0.70); EOSINOPHILS % (AUTO) 0.6 % (0.0-8.0); HEMATOCRIT 30.7 % (42-54); IMMATURE GRANULOCYTE ABSOLUTE 0.19 K/uL (0-1); LYMPHOCYTES # (AUTO) 1.9 K/uL (1.0-4.8); LYMPHOCYTES % (AUTO) 13.6 % (21.0-51.0); MEAN CORPUSCULAR HEMOGLOBIN 28.6 pg (27.0-33.0); MEAN CORPUSCULAR HGB CONC 32.6 g/dL (32.0-36.0); MEAN CORPUSCULAR VOLUME 87.7 fL (79-99); MONOCYTES # (AUTO) 0.9 K/uL (0.1-1.0); MONOCYTES % (AUTO) 6.5 % (3.0-13.0); NEUTROPHILS # (AUTO) 10.9 K/uL (1.8-7.7); NEUTROPHILS % (AUTO) 77.7 % (40.0-77.0); PLATELET COUNT (AUTO) 463 K/uL (130-400); RED CELL DISTRIBUTION WIDTH 15.3 % (11.0-15.5); WHITE BLOOD COUNT (AUTO) 14.1 K/uL (4.8-10.8)
[2023-04-29 08:04] LABS: CREATININE 0.8 mg/dL (0.5-1.5); POTASSIUM 3.4 mmol/L (3.5-5.1)
[2023-04-29 08:09] LABS: ALBUMIN 1.8 g/dL (3.5-5.0); BILIRUBIN,TOTAL 0.3 mg/dL (0.2-1.0)
[2023-04-29] MEDS: 0.9%NACL 1000ML 1,000 ML IV SCH ×2 (08:55→18:12)
[2023-04-29] MEDS: PANTOPRAZOLE 40 MG/VIAL IVP SCH (09:26)
[2023-04-29] MEDS: Vitamin B Complex/Vit C/Folic Acid PO SCH (09:26)
[2023-04-29] MEDS: KCL 20 MEQ ERTAB PO SCH ×2 (09:26→21:14)
[2023-04-29] MEDS ORDERED: FERROUS SULFATE 325 MG TABLET.DR PO ONE (11:00)
[2023-04-29] MEDS: ENOXAPARIN SODIUM 30 MG/0.3 ML SQ SCH (11:23)
[2023-04-29] MEDS ORDERED: SODIUM HYPOCHLORITE 0.125% 473 ML SOLUTION TP SCH (20:00)
[2023-04-30] VITALS (8 sets, daily range): BP systolic 95–145; BP diastolic 45–73; PULSE 71–94; RESP 16–22; O2SAT 96–99
[2023-04-30] MEDS: AMOX/CLAV 875/125MG TAB PO SCH ×2 (01:28→12:45)
[2023-04-30] MEDS: MORPHINE 2 MG SYG IVP PRN (02:04)
[2023-04-30] MEDS: 0.9%NACL 1000ML 1,000 ML IV SCH ×2 (04:55→14:55)
[2023-04-30 06:19] LABS: BASOPHILS # (AUTO) 0.02 K/uL (0.00-0.20); BASOPHILS % (AUTO) 0.2 % (0.0-5.0); EOSINOPHILS # (AUTO) 0.09 K/uL (0.00-0.70); EOSINOPHILS % (AUTO) 0.8 % (0.0-8.0); HEMATOCRIT 31.8 % (42-54); IMMATURE GRANULOCYTE ABSOLUTE 0.09 K/uL (0-1); LYMPHOCYTES # (AUTO) 1.7 K/uL (1.0-4.8); LYMPHOCYTES % (AUTO) 14.8 % (21.0-51.0); MEAN CORPUSCULAR HEMOGLOBIN 28.4 pg (27.0-33.0); MEAN CORPUSCULAR HGB CONC 32.1 g/dL (32.0-36.0); MEAN CORPUSCULAR VOLUME 88.6 fL (79-99); MONOCYTES # (AUTO) 0.8 K/uL (0.1-1.0); NEUTROPHILS # (AUTO) 8.7 K/uL (1.8-7.7); NEUTROPHILS % (AUTO) 76.4 % (40.0-77.0); PLATELET COUNT (AUTO) 410 K/uL (130-400); RED BLOOD CELL COUNT(AUTO) 3.59 MIL/uL (4.50-6.20); WHITE BLOOD COUNT (AUTO) 11.3 K/uL (4.8-10.8)
[2023-04-30] MEDS: INSULIN HUMULIN R 100 UNIT/ML 3ML SQ SCH ×4 (06:36→20:27)
[2023-04-30 06:39] LABS: CREATININE 0.7 mg/dL (0.5-1.5); MAGNESIUM 1.5 mg/dL (1.80-2.40); PHOSPHORUS 3.5 mg/dL (2.5-4.9); POTASSIUM 3.5 mmol/L (3.5-5.1)
[2023-04-30] MEDS: PANTOPRAZOLE 40 MG/VIAL IVP SCH (09:27)
[2023-04-30] MEDS: ENOXAPARIN SODIUM 30 MG/0.3 ML SQ SCH (09:27)
[2023-04-30] MEDS: Vitamin B Complex/Vit C/Folic Acid PO SCH (09:28)
[2023-04-30] MEDS: KCL 20 MEQ ERTAB PO SCH ×2 (09:28→20:40)
[2023-04-30] MEDS: MAGNESIUM 2GM PREMIX 50ML 50 ML IV PRN (09:29)
[2023-04-30] MEDS: KCL 20 MEQ ERTAB PO PRN ×2 (09:29→15:54)
[2023-04-30] MEDS: HYDROMORPHONE 1 MG INJ IVP PRN ×2 (09:38→13:42)
[2023-04-30] MEDS: KETOROLAC 30MG VIAL (30MG/ML) IM PRN ×2 (12:47→20:42)
[2023-05-01] VITALS (8 sets, daily range): BP systolic 92–123; BP diastolic 50–67; PULSE 85–106; RESP 18–22; O2SAT 97–99
[2023-05-01] MEDS: AMOX/CLAV 875/125MG TAB PO SCH ×2 (00:28→14:25)
[2023-05-01] MEDS: 0.9%NACL 1000ML 1,000 ML IV SCH ×3 (03:54→21:13)
[2023-05-01] MEDS: INSULIN HUMULIN R 100 UNIT/ML 3ML SQ SCH ×4 (05:31→21:00)
[2023-05-01 05:53] LABS: BASOPHILS # (AUTO) 0.04 K/uL (0.00-0.20); BASOPHILS % (AUTO) 0.4 % (0.0-5.0); EOSINOPHILS # (AUTO) 0.08 K/uL (0.00-0.70); EOSINOPHILS % (AUTO) 0.8 % (0.0-8.0); HEMATOCRIT 33.5 % (42-54); IMMATURE GRANULOCYTE ABSOLUTE 0.05 K/uL (0-1); LYMPHOCYTES # (AUTO) 1.8 K/uL (1.0-4.8); MEAN CORPUSCULAR HGB CONC 30.7 g/dL (32.0-36.0); MONOCYTES # (AUTO) 0.7 K/uL (0.1-1.0); MONOCYTES % (AUTO) 7.3 % (3.0-13.0); NEUTROPHILS # (AUTO) 6.9 K/uL (1.8-7.7); PLATELET COUNT (AUTO) 448 K/uL (130-400); RED BLOOD CELL COUNT(AUTO) 3.68 MIL/uL (4.50-6.20); WHITE BLOOD COUNT (AUTO) 9.6 K/uL (4.8-10.8)
[2023-05-01 06:10] LABS: ALBUMIN 1.9 g/dL (3.5-5.0); BILIRUBIN,TOTAL 0.2 mg/dL (0.2-1.0); CREATININE 0.8 mg/dL (0.5-1.5); MAGNESIUM 1.9 mg/dL (1.80-2.40); POTASSIUM 3.9 mmol/L (3.5-5.1); TOTAL PROTEIN, SERUM 8.3 g/dL (6.0-8.3)
[2023-05-01] MEDS: MAGNESIUM 2GM PREMIX 50ML 50 ML IV PRN (06:18)
[2023-05-01] MEDS: HYDROMORPHONE 1 MG INJ IVP PRN ×4 (06:25→21:14)
[2023-05-01] MEDS: KCL 20 MEQ ERTAB PO SCH ×2 (08:59→18:25)
[2023-05-01] MEDS: ENOXAPARIN SODIUM 30 MG/0.3 ML SQ SCH (08:59)
[2023-05-01] MEDS: Vitamin B Complex/Vit C/Folic Acid PO SCH (09:00)
[2023-05-01] MEDS: PANTOPRAZOLE 40 MG/VIAL IVP SCH (09:00)
[2023-05-02] VITALS (9 sets, daily range): BP systolic 105–133; BP diastolic 57–74; PULSE 85–107; RESP 19–20; O2SAT 98
[2023-05-02] MEDS: AMOX/CLAV 875/125MG TAB PO SCH ×2 (01:00→14:25)
[2023-05-02 05:10] LABS: HEMATOCRIT 29.7 % (42-54); MEAN CORPUSCULAR HEMOGLOBIN 28.1 pg (27.0-33.0); MEAN CORPUSCULAR HGB CONC 31.3 g/dL (32.0-36.0); MEAN CORPUSCULAR VOLUME 89.7 fL (79-99); RED BLOOD CELL COUNT(AUTO) 3.31 MIL/uL (4.50-6.20); RED CELL DISTRIBUTION WIDTH 14.9 % (11.0-15.5); WHITE BLOOD COUNT (AUTO) 9.4 K/uL (4.8-10.8)
[2023-05-02] MEDS: INSULIN HUMULIN R 100 UNIT/ML 3ML SQ SCH ×4 (05:29→20:08)
[2023-05-02 05:44] LABS: ALBUMIN 1.8 g/dL (3.5-5.0); BILIRUBIN,TOTAL 0.3 mg/dL (0.2-1.0); CREATININE 0.8 mg/dL (0.5-1.5); MAGNESIUM 1.8 mg/dL (1.80-2.40); POTASSIUM 3.7 mmol/L (3.5-5.1); TOTAL PROTEIN, SERUM 8.1 g/dL (6.0-8.3)
[2023-05-02] MEDS: KCL 20 MEQ ERTAB PO PRN (05:50)
[2023-05-02] MEDS: KETOROLAC 30MG VIAL (30MG/ML) IM PRN (05:50)
[2023-05-02] MEDS: MAGNESIUM 2GM PREMIX 50ML 50 ML IV PRN (05:51)
[2023-05-02] MEDS: Vitamin B Complex/Vit C/Folic Acid PO SCH (09:29)
[2023-05-02] MEDS: ENOXAPARIN SODIUM 30 MG/0.3 ML SQ SCH (09:29)
[2023-05-02] MEDS: PANTOPRAZOLE 40 MG/VIAL IVP SCH (09:30)
[2023-05-02] MEDS: KCL 20 MEQ ERTAB PO SCH ×2 (09:30→19:58)
[2023-05-02] MEDS: HYDROMORPHONE 1 MG INJ IVP PRN ×2 (11:48→20:02)
[2023-05-03] VITALS (7 sets, daily range): BP systolic 90–129; BP diastolic 51–64; PULSE 85–105; RESP 17–20; O2SAT 97
[2023-05-03] MEDS: HYDROMORPHONE 1 MG INJ IVP PRN ×3 (00:36→22:11)
[2023-05-03] MEDS: AMOX/CLAV 875/125MG TAB PO SCH ×2 (01:24→14:06)
[2023-05-03 05:05] LABS: BASOPHILS # (AUTO) 0.03 K/uL (0.00-0.20); BASOPHILS % (AUTO) 0.3 % (0.0-5.0); EOSINOPHILS # (AUTO) 0.13 K/uL (0.00-0.70); EOSINOPHILS % (AUTO) 1.2 % (0.0-8.0); HEMATOCRIT 29.7 % (42-54); IMMATURE GRANULOCYTE ABSOLUTE 0.06 K/uL (0-1); LYMPHOCYTES # (AUTO) 1.9 K/uL (1.0-4.8); LYMPHOCYTES % (AUTO) 17.6 % (21.0-51.0); MEAN CORPUSCULAR HEMOGLOBIN 28.4 pg (27.0-33.0); MEAN CORPUSCULAR VOLUME 88.7 fL (79-99); MONOCYTES # (AUTO) 0.9 K/uL (0.1-1.0); MONOCYTES % (AUTO) 8.1 % (3.0-13.0); NEUTROPHILS # (AUTO) 7.6 K/uL (1.8-7.7); NEUTROPHILS % (AUTO) 72.2 % (40.0-77.0); PLATELET COUNT (AUTO) 509 K/uL (130-400); RED BLOOD CELL COUNT(AUTO) 3.35 MIL/uL (4.50-6.20); RED CELL DISTRIBUTION WIDTH 14.8 % (11.0-15.5); WHITE BLOOD COUNT (AUTO) 10.5 K/uL (4.8-10.8)
[2023-05-03 05:18] LABS: CREATININE 0.9 mg/dL (0.5-1.5); MAGNESIUM 1.8 mg/dL (1.80-2.40); POTASSIUM 4.2 mmol/L (3.5-5.1)
[2023-05-03] MEDS: INSULIN HUMULIN R 100 UNIT/ML 3ML SQ SCH ×4 (06:31→20:25)
[2023-05-03] MEDS: KETOROLAC 30MG VIAL (30MG/ML) IM PRN ×2 (08:59→19:09)
[2023-05-03] MEDS: PANTOPRAZOLE 40 MG/VIAL IVP SCH (08:59)
[2023-05-03] MEDS: Vitamin B Complex/Vit C/Folic Acid PO SCH (09:00)
[2023-05-03] MEDS: KCL 20 MEQ ERTAB PO SCH ×2 (09:04→20:25)
[2023-05-03] MEDS: ENOXAPARIN SODIUM 30 MG/0.3 ML SQ SCH (09:07)
[2023-05-03] MEDS: MAGNESIUM 2GM PREMIX 50ML 50 ML IV PRN (14:30)
[2023-05-04] VITALS (8 sets, daily range): BP systolic 100–138; BP diastolic 52–71; PULSE 87–100; RESP 16–20; O2SAT 97–99
[2023-05-04] MEDS: AMOX/CLAV 875/125MG TAB PO SCH ×3 (01:37→14:10)
[2023-05-04] MEDS: KETOROLAC 30MG VIAL (30MG/ML) IM PRN (01:41)
[2023-05-04 05:08] LABS: BASOPHILS # (AUTO) 0.04 K/uL (0.00-0.20); BASOPHILS % (AUTO) 0.5 % (0.0-5.0); EOSINOPHILS # (AUTO) 0.14 K/uL (0.00-0.70); EOSINOPHILS % (AUTO) 1.6 % (0.0-8.0); HEMATOCRIT 28.7 % (42-54); IMMATURE GRANULOCYTE ABSOLUTE 0.05 K/uL (0-1); LYMPHOCYTES # (AUTO) 1.8 K/uL (1.0-4.8); LYMPHOCYTES % (AUTO) 20.3 % (21.0-51.0); MEAN CORPUSCULAR HEMOGLOBIN 28.6 pg (27.0-33.0); MEAN CORPUSCULAR HGB CONC 31.7 g/dL (32.0-36.0); MEAN CORPUSCULAR VOLUME 90.3 fL (79-99); MONOCYTES # (AUTO) 0.7 K/uL (0.1-1.0); MONOCYTES % (AUTO) 7.4 % (3.0-13.0); NEUTROPHILS # (AUTO) 6.1 K/uL (1.8-7.7); NEUTROPHILS % (AUTO) 69.6 % (40.0-77.0); PLATELET COUNT (AUTO) 498 K/uL (130-400); RED BLOOD CELL COUNT(AUTO) 3.18 MIL/uL (4.50-6.20); RED CELL DISTRIBUTION WIDTH 14.9 % (11.0-15.5); WHITE BLOOD COUNT (AUTO) 8.8 K/uL (4.8-10.8)
[2023-05-04 05:19] LABS: CREATININE 0.9 mg/dL (0.5-1.5); MAGNESIUM 1.9 mg/dL (1.80-2.40)
[2023-05-04] MEDS: INSULIN HUMULIN R 100 UNIT/ML 3ML SQ SCH ×4 (06:36→20:16)
[2023-05-04] MEDS: HYDROMORPHONE 1 MG INJ IVP PRN ×2 (09:18→17:50)
[2023-05-04] MEDS: PANTOPRAZOLE 40 MG/VIAL IVP SCH (09:22)
[2023-05-04] MEDS: Vitamin B Complex/Vit C/Folic Acid PO SCH (09:22)
[2023-05-04] MEDS: KCL 20 MEQ ERTAB PO SCH ×2 (09:24→20:16)
[2023-05-04] MEDS: ENOXAPARIN SODIUM 30 MG/0.3 ML SQ SCH (09:25)
[2023-05-04] MEDS: MAGNESIUM 2GM PREMIX 50ML 50 ML IV PRN (09:26)
[2023-05-04] MEDS: KETOROLAC 30MG VIAL (30MG/ML) IV PRN (14:17)
[2023-05-05] MEDS: HYDROMORPHONE 1 MG INJ IVP PRN ×2 (00:06→04:50)
[2023-05-05 04:00] VITALS: BP 115/71; PULSE 102; RESP 20
[2023-05-05 05:49] LABS: MEAN CORPUSCULAR HEMOGLOBIN 28.3 pg (27.0-33.0); MEAN CORPUSCULAR HGB CONC 31.3 g/dL (32.0-36.0); MEAN CORPUSCULAR VOLUME 90.7 fL (79-99); PLATELET COUNT (AUTO) 536 K/uL (130-400); RED BLOOD CELL COUNT(AUTO) 3.53 MIL/uL (4.50-6.20); RED CELL DISTRIBUTION WIDTH 14.9 % (11.0-15.5); WHITE BLOOD COUNT (AUTO) 8.1 K/uL (4.8-10.8)
[2023-05-05 06:04] LABS: BAND NEUTROPHILS % (MANUAL) 2 % (0-2); EOSINOPHILS % (MANUAL) 4 % (1-6); LYMPHOCYTES % (MANUAL) 10 % (22-44); MAN.DIFF COMMENT-IMPRESSION MANUAL DIFFERENTIAL; MONOCYTES % (MANUAL) 6 % (2-9); PLATELET MORPHOLOGY COMMENT INCREASED; SEGMENTED NEUTROPHILS % 78 % (40-70); TOTAL CELLS COUNTED 50; WBC MORPHOLOGY CONSISTENT W/DIFF
[2023-05-05 06:07] LABS: ALBUMIN 2.1 g/dL (3.5-5.0); BILIRUBIN,TOTAL 0.3 mg/dL (0.2-1.0); CREATININE 0.9 mg/dL (0.5-1.5); MAGNESIUM 2.1 mg/dL (1.80-2.40); POTASSIUM 4.7 mmol/L (3.5-5.1)
[2023-05-05] MEDS: INSULIN HUMULIN R 100 UNIT/ML 3ML SQ SCH ×4 (06:34→20:46)
[2023-05-05 08:00] VITALS: BP 127/67; PULSE 89; RESP 14; O2SAT 97
[2023-05-05] MEDS: PANTOPRAZOLE 40 MG/VIAL IVP SCH (09:36)
[2023-05-05] MEDS: Vitamin B Complex/Vit C/Folic Acid PO SCH (09:36)
[2023-05-05] MEDS: ENOXAPARIN SODIUM 30 MG/0.3 ML SQ SCH (09:37)
[2023-05-05] MEDS: KCL 20 MEQ ERTAB PO SCH ×2 (09:37→21:16)
[2023-05-05 12:00] VITALS: BP 126/70; PULSE 89; RESP 14
[2023-05-05] MEDS: AMOX/CLAV 875/125MG TAB PO SCH (14:10)
[2023-05-05 16:00] VITALS: BP 110/65; PULSE 102; RESP 16
[2023-05-05] MEDS: KETOROLAC 30MG VIAL (30MG/ML) IV PRN ×2 (17:35→22:36)
[2023-05-05 19:50] VITALS: O2SAT 98
[2023-05-05 20:00] VITALS: BP 111/70; PULSE 86; RESP 22
[2023-05-06] VITALS: BP 97/66; PULSE 94; RESP 18
[2023-05-06] MEDS: AMOX/CLAV 875/125MG TAB PO SCH ×2 (02:02→13:45)
[2023-05-06 04:00] VITALS: BP 120/63; PULSE 80; RESP 20
[2023-05-06] MEDS: KETOROLAC 30MG VIAL (30MG/ML) IV PRN ×3 (04:52→21:33)
[2023-05-06] MEDS: INSULIN HUMULIN R 100 UNIT/ML 3ML SQ SCH ×4 (05:32→20:33)
[2023-05-06 06:05] LABS: BASOPHILS # (AUTO) 0.05 K/uL (0.00-0.20); BASOPHILS % (AUTO) 0.6 % (0.0-5.0); EOSINOPHILS # (AUTO) 0.11 K/uL (0.00-0.70); EOSINOPHILS % (AUTO) 1.3 % (0.0-8.0); HEMATOCRIT 29.2 % (42-54); IMMATURE GRANULOCYTE ABSOLUTE 0.04 K/uL (0-1); LYMPHOCYTES # (AUTO) 1.9 K/uL (1.0-4.8); LYMPHOCYTES % (AUTO) 23.2 % (21.0-51.0); MEAN CORPUSCULAR HEMOGLOBIN 28.7 pg (27.0-33.0); MEAN CORPUSCULAR HGB CONC 32.2 g/dL (32.0-36.0); MONOCYTES # (AUTO) 0.7 K/uL (0.1-1.0); MONOCYTES % (AUTO) 8.3 % (3.0-13.0); NEUTROPHILS # (AUTO) 5.5 K/uL (1.8-7.7); NEUTROPHILS % (AUTO) 66.1 % (40.0-77.0); PLATELET COUNT (AUTO) 519 K/uL (130-400); RED BLOOD CELL COUNT(AUTO) 3.28 MIL/uL (4.50-6.20); RED CELL DISTRIBUTION WIDTH 14.9 % (11.0-15.5); WHITE BLOOD COUNT (AUTO) 8.4 K/uL (4.8-10.8)
[2023-05-06 06:43] LABS: ALBUMIN 2.1 g/dL (3.5-5.0); BILIRUBIN,TOTAL 0.3 mg/dL (0.2-1.0); TOTAL PROTEIN, SERUM 9.1 g/dL (6.0-8.3)
[2023-05-06 08:00] VITALS: BP 122/68; PULSE 106; RESP 20; O2SAT 98
[2023-05-06] MEDS: Vitamin B Complex/Vit C/Folic Acid PO SCH (09:21)
[2023-05-06] MEDS: KCL 20 MEQ ERTAB PO SCH ×2 (09:22→20:35)
[2023-05-06] MEDS: PANTOPRAZOLE 40 MG/VIAL IVP SCH (09:22)
[2023-05-06] MEDS: ENOXAPARIN SODIUM 30 MG/0.3 ML SQ SCH (09:24)
[2023-05-06 12:00] VITALS: BP 118/64; PULSE 105; RESP 20
[2023-05-06 16:00] VITALS: BP 122/70; PULSE 55; RESP 20
[2023-05-06 20:00] VITALS: BP 141/81; PULSE 95; RESP 18
[2023-05-07] VITALS (7 sets, daily range): BP systolic 110–128; BP diastolic 67–76; PULSE 89–99; RESP 16–20; O2SAT 97–99
[2023-05-07] MEDS: AMOX/CLAV 875/125MG TAB PO SCH ×2 (01:01→13:15)
[2023-05-07] MEDS: KETOROLAC 30MG VIAL (30MG/ML) IV PRN ×2 (04:16→17:40)
[2023-05-07 06:05] LABS: HEMATOCRIT 29.6 % (42-54); MEAN CORPUSCULAR HGB CONC 32.8 g/dL (32.0-36.0); MEAN CORPUSCULAR VOLUME 88.4 fL (79-99); RED BLOOD CELL COUNT(AUTO) 3.35 MIL/uL (4.50-6.20); WHITE BLOOD COUNT (AUTO) 8.5 K/uL (4.8-10.8)
[2023-05-07 06:19] LABS: CREATININE 1.1 mg/dL (0.5-1.5); POTASSIUM 4.1 mmol/L (3.5-5.1)
[2023-05-07] MEDS: INSULIN HUMULIN R 100 UNIT/ML 3ML SQ SCH ×4 (06:58→21:00)
[2023-05-07] MEDS: PANTOPRAZOLE 40 MG/VIAL IVP SCH (08:27)
[2023-05-07] MEDS: Vitamin B Complex/Vit C/Folic Acid PO SCH (08:27)
[2023-05-07] MEDS: KCL 20 MEQ ERTAB PO SCH ×2 (08:34→21:38)
[2023-05-07] MEDS: ENOXAPARIN SODIUM 30 MG/0.3 ML SQ SCH (08:35)
[2023-05-08] VITALS (7 sets, daily range): BP systolic 111–128; BP diastolic 65–78; PULSE 90–100; RESP 17–20; O2SAT 98
[2023-05-08] MEDS: AMOX/CLAV 875/125MG TAB PO SCH ×2 (01:19→13:34)
[2023-05-08] MEDS: INSULIN HUMULIN R 100 UNIT/ML 3ML SQ SCH ×3 (06:37→20:29)
[2023-05-08] MEDS: Vitamin B Complex/Vit C/Folic Acid PO SCH (09:00)
[2023-05-08] MEDS: KCL 20 MEQ ERTAB PO SCH ×2 (09:01→20:30)
[2023-05-08] MEDS: PANTOPRAZOLE 40 MG/VIAL IVP SCH (09:01)
[2023-05-08] MEDS: ENOXAPARIN SODIUM 30 MG/0.3 ML SQ SCH (09:03)
[2023-05-08] MEDS ORDERED: BACITRACIN 1 EACH PACKET TP ONE (14:37)
[2023-05-08] MEDS: KETOROLAC 30MG VIAL (30MG/ML) IV PRN (15:21)
[2023-05-09] VITALS (8 sets, daily range): BP systolic 113–147; BP diastolic 67–75; PULSE 74–97; RESP 18–20; TEMP 98.2; O2SAT 97–98
[2023-05-09] MEDS: AMOX/CLAV 875/125MG TAB PO SCH ×2 (01:15→13:25)
[2023-05-09] MEDS: KETOROLAC 30MG VIAL (30MG/ML) IV PRN ×2 (01:16→09:19)
[2023-05-09 05:58] LABS: HEMATOCRIT 29.6 % (42-54); MEAN CORPUSCULAR HEMOGLOBIN 28.6 pg (27.0-33.0); MEAN CORPUSCULAR HGB CONC 32.1 g/dL (32.0-36.0); MEAN CORPUSCULAR VOLUME 89.2 fL (79-99); RED BLOOD CELL COUNT(AUTO) 3.32 MIL/uL (4.50-6.20); RED CELL DISTRIBUTION WIDTH 14.9 % (11.0-15.5); WHITE BLOOD COUNT (AUTO) 9.2 K/uL (4.8-10.8)
[2023-05-09] MEDS: INSULIN HUMULIN R 100 UNIT/ML 3ML SQ SCH ×4 (06:07→21:00)
[2023-05-09 06:14] LABS: POTASSIUM 4.2 mmol/L (3.5-5.1)
[2023-05-09] MEDS: Vitamin B Complex/Vit C/Folic Acid PO SCH (09:18)
[2023-05-09] MEDS: ENOXAPARIN SODIUM 30 MG/0.3 ML SQ SCH (09:18)
[2023-05-09] MEDS: PANTOPRAZOLE 40 MG/VIAL IVP SCH (09:18)
[2023-05-09] MEDS: KCL 20 MEQ ERTAB PO SCH ×2 (09:18→21:58)
[2023-05-09] MEDS: ACETAMINOPHEN 325 MG TAB PO PRN (21:59)
[2023-05-10] VITALS (7 sets, daily range): BP systolic 101–139; BP diastolic 50–70; PULSE 73–101; RESP 18–20; O2SAT 97–100
[2023-05-10] MEDS: INSULIN HUMULIN R 100 UNIT/ML 3ML SQ SCH ×4 (05:52→20:45)
[2023-05-10] MEDS: AMOX/CLAV 875/125MG TAB PO SCH ×2 (05:58→18:32)
[2023-05-10] MEDS: PANTOPRAZOLE 40 MG/VIAL IVP SCH (09:18)
[2023-05-10] MEDS: Vitamin B Complex/Vit C/Folic Acid PO SCH (09:18)
[2023-05-10] MEDS: ENOXAPARIN SODIUM 30 MG/0.3 ML SQ SCH (09:18)
[2023-05-10] MEDS: KCL 20 MEQ ERTAB PO SCH ×2 (09:18→20:46)
[2023-05-10] MEDS: ACETAMINOPHEN 325 MG TAB PO PRN (09:20)
[2023-05-10] MEDS: KETOROLAC 30MG VIAL (30MG/ML) IVP PRN ×2 (10:58→18:52)
[2023-05-11] VITALS (7 sets, daily range): BP systolic 84–128; BP diastolic 51–70; PULSE 88–100; RESP 18–20; O2SAT 97
[2023-05-11] MEDS: KETOROLAC 30MG VIAL (30MG/ML) IVP PRN (01:14)
[2023-05-11] MEDS: AMOX/CLAV 875/125MG TAB PO SCH ×2 (06:01→18:23)
[2023-05-11] MEDS: INSULIN HUMULIN R 100 UNIT/ML 3ML SQ SCH ×4 (06:02→21:00)
[2023-05-11] MEDS: PANTOPRAZOLE 40 MG/VIAL IVP SCH (08:58)
[2023-05-11] MEDS: ENOXAPARIN SODIUM 30 MG/0.3 ML SQ SCH (08:59)
[2023-05-11] MEDS: Vitamin B Complex/Vit C/Folic Acid PO SCH (08:59)
[2023-05-11] MEDS: KCL 20 MEQ ERTAB PO SCH ×2 (08:59→19:26)
[2023-05-11] MEDS: MORPHINE 2 MG SYG IVP PRN ×2 (10:55→23:36)
[2023-05-11] MEDS: ACETAMINOPHEN 325 MG TAB PO PRN (19:27)
[2023-05-12] VITALS (7 sets, daily range): BP systolic 109–143; BP diastolic 63–82; PULSE 80–110; RESP 17–20; O2SAT 97–98
[2023-05-12] MEDS: MORPHINE 2 MG SYG IVP PRN ×3 (03:39→19:23)
[2023-05-12 04:54] LABS: BASOPHILS # (AUTO) 0.04 K/uL (0.00-0.20); BASOPHILS % (AUTO) 0.4 % (0.0-5.0); EOSINOPHILS # (AUTO) 0.23 K/uL (0.00-0.70); EOSINOPHILS % (AUTO) 2.4 % (0.0-8.0); HEMATOCRIT 31.7 % (42-54); IMMATURE GRANULOCYTE ABSOLUTE 0.03 K/uL (0-1); LYMPHOCYTES # (AUTO) 1.8 K/uL (1.0-4.8); LYMPHOCYTES % (AUTO) 19.2 % (21.0-51.0); MEAN CORPUSCULAR HEMOGLOBIN 28.4 pg (27.0-33.0); MEAN CORPUSCULAR HGB CONC 31.5 g/dL (32.0-36.0); MEAN CORPUSCULAR VOLUME 90.1 fL (79-99); MONOCYTES # (AUTO) 0.8 K/uL (0.1-1.0); MONOCYTES % (AUTO) 8.3 % (3.0-13.0); NEUTROPHILS # (AUTO) 6.6 K/uL (1.8-7.7); NEUTROPHILS % (AUTO) 69.4 % (40.0-77.0); PLATELET COUNT (AUTO) 345 K/uL (130-400); RED BLOOD CELL COUNT(AUTO) 3.52 MIL/uL (4.50-6.20); RED CELL DISTRIBUTION WIDTH 14.9 % (11.0-15.5); WHITE BLOOD COUNT (AUTO) 9.6 K/uL (4.8-10.8)
[2023-05-12 05:14] LABS: ALBUMIN 2.4 g/dL (3.5-5.0); BILIRUBIN,TOTAL 0.3 mg/dL (0.2-1.0); TOTAL PROTEIN, SERUM 9.1 g/dL (6.0-8.3)
[2023-05-12] MEDS: ACETAMINOPHEN WITH CODEINE 1 TAB TAB PO PRN (05:44)
[2023-05-12] MEDS: AMOX/CLAV 875/125MG TAB PO SCH ×2 (05:44→19:11)
[2023-05-12] MEDS: INSULIN HUMULIN R 100 UNIT/ML 3ML SQ SCH ×4 (06:33→21:00)
[2023-05-12] MEDS: Vitamin B Complex/Vit C/Folic Acid PO SCH (09:08)
[2023-05-12] MEDS: PANTOPRAZOLE 40 MG/VIAL IVP SCH (09:08)
[2023-05-12] MEDS: KCL 20 MEQ ERTAB PO SCH ×2 (09:09→22:19)
[2023-05-12] MEDS: ENOXAPARIN SODIUM 30 MG/0.3 ML SQ SCH (09:10)
[2023-05-13] VITALS (8 sets, daily range): BP systolic 94–128; BP diastolic 64–82; PULSE 95–100; RESP 17–20; O2SAT 98
[2023-05-13] MEDS: AMOX/CLAV 875/125MG TAB PO SCH ×2 (04:45→17:55)
[2023-05-13] MEDS: ACETAMINOPHEN WITH CODEINE 1 TAB TAB PO PRN ×2 (04:45→12:58)
[2023-05-13] MEDS: INSULIN HUMULIN R 100 UNIT/ML 3ML SQ SCH ×4 (05:37→20:22)
[2023-05-13] MEDS: PANTOPRAZOLE 40 MG/VIAL IVP SCH (09:17)
[2023-05-13] MEDS: Vitamin B Complex/Vit C/Folic Acid PO SCH (09:17)
[2023-05-13] MEDS: KCL 20 MEQ ERTAB PO SCH ×2 (09:18→20:26)
[2023-05-13] MEDS: ENOXAPARIN SODIUM 30 MG/0.3 ML SQ SCH (09:19)
[2023-05-13] MEDS: MORPHINE 2 MG SYG IVP PRN (20:27)
[2023-05-14] VITALS (7 sets, daily range): BP systolic 113–125; BP diastolic 53–70; PULSE 104–107; RESP 19–21; O2SAT 97
[2023-05-14] MEDS: AMOX/CLAV 875/125MG TAB PO SCH ×2 (04:43→17:06)
[2023-05-14] MEDS: ACETAMINOPHEN WITH CODEINE 1 TAB TAB PO PRN (04:44)
[2023-05-14 05:34] LABS: HEMATOCRIT 28.8 % (42-54); MEAN CORPUSCULAR HEMOGLOBIN 28.3 pg (27.0-33.0); MEAN CORPUSCULAR HGB CONC 31.9 g/dL (32.0-36.0); MEAN CORPUSCULAR VOLUME 88.6 fL (79-99); RED BLOOD CELL COUNT(AUTO) 3.25 MIL/uL (4.50-6.20); RED CELL DISTRIBUTION WIDTH 14.6 % (11.0-15.5); WHITE BLOOD COUNT (AUTO) 8.9 K/uL (4.8-10.8)
[2023-05-14 05:50] LABS: CREATININE 0.9 mg/dL (0.5-1.5)
[2023-05-14] MEDS: INSULIN HUMULIN R 100 UNIT/ML 3ML SQ SCH ×4 (05:52→20:31)
[2023-05-14] MEDS: PANTOPRAZOLE 40 MG/VIAL IVP SCH (10:24)
[2023-05-14] MEDS: Vitamin B Complex/Vit C/Folic Acid PO SCH (10:24)
[2023-05-14] MEDS: KCL 20 MEQ ERTAB PO SCH ×2 (10:24→20:20)
[2023-05-14] MEDS: ENOXAPARIN SODIUM 30 MG/0.3 ML SQ SCH (10:25)
[2023-05-14] MEDS: MORPHINE 2 MG SYG IVP PRN ×2 (17:07→23:56)
[2023-05-15] MEDS ORDERED: ACETAMINOPHEN 500 MG TABLET PO PRN ×2
[2023-05-15 03:00] VITALS: BP 109/68; PULSE 95; RESP 19
[2023-05-15] MEDS: AMOX/CLAV 875/125MG TAB PO SCH ×2 (05:35→18:51)
[2023-05-15] MEDS: INSULIN HUMULIN R 100 UNIT/ML 3ML SQ SCH ×4 (06:02→21:00)
[2023-05-15 06:32] LABS: HEMATOCRIT 28.3 % (42-54); MEAN CORPUSCULAR HEMOGLOBIN 28.1 pg (27.0-33.0); MEAN CORPUSCULAR HGB CONC 31.8 g/dL (32.0-36.0); MEAN CORPUSCULAR VOLUME 88.4 fL (79-99); RED BLOOD CELL COUNT(AUTO) 3.2 MIL/uL (4.50-6.20); RED CELL DISTRIBUTION WIDTH 14.5 % (11.0-15.5); WHITE BLOOD COUNT (AUTO) 7.8 K/uL (4.8-10.8)
[2023-05-15 06:51] LABS: MAGNESIUM 1.9 mg/dL (1.80-2.40); POTASSIUM 3.8 mmol/L (3.5-5.1)
[2023-05-15 08:00] VITALS: BP 106/52; PULSE 102; RESP 20
[2023-05-15] MEDS: Vitamin B Complex/Vit C/Folic Acid PO SCH (09:57)
[2023-05-15] MEDS: KCL 20 MEQ ERTAB PO SCH ×2 (09:57→21:18)
[2023-05-15] MEDS: PANTOPRAZOLE 40 MG/VIAL IVP SCH (09:57)
[2023-05-15] MEDS: ENOXAPARIN SODIUM 30 MG/0.3 ML SQ SCH (09:58)
[2023-05-15 11:45] VITALS: BP 117/70; PULSE 97; RESP 21
[2023-05-15] MEDS: ACETAMINOPHEN WITH CODEINE 1 TAB TAB PO PRN (11:45)
[2023-05-15] MEDS ORDERED: LACTULOSE 20 GM/30 ML UDCUP PO ONE (15:00)
[2023-05-15] MEDS: MORPHINE 2 MG SYG IVP PRN ×2 (15:42→21:35)
[2023-05-15 16:00] VITALS: BP 103/81; PULSE 107; RESP 21
[2023-05-15 20:00] VITALS: BP 133/64; PULSE 103; RESP 20; O2SAT 97
[2023-05-16] VITALS (9 sets, daily range): BP systolic 110–126; BP diastolic 56–77; PULSE 91–98; RESP 17–21; O2SAT 97–99
[2023-05-16] MEDS: MORPHINE 2 MG SYG IVP PRN ×2 (04:33→08:48)
[2023-05-16 05:02] LABS: HEMATOCRIT 27.4 % (42-54); MEAN CORPUSCULAR HEMOGLOBIN 27.9 pg (27.0-33.0); MEAN CORPUSCULAR HGB CONC 32.1 g/dL (32.0-36.0); RED BLOOD CELL COUNT(AUTO) 3.15 MIL/uL (4.50-6.20); RED CELL DISTRIBUTION WIDTH 14.8 % (11.0-15.5); WHITE BLOOD COUNT (AUTO) 7.7 K/uL (4.8-10.8)
[2023-05-16 05:19] LABS: ALBUMIN 2.3 g/dL (3.5-5.0); BILIRUBIN,TOTAL 0.3 mg/dL (0.2-1.0); POTASSIUM 3.6 mmol/L (3.5-5.1)
[2023-05-16] MEDS: AMOX/CLAV 875/125MG TAB PO SCH ×2 (06:24→19:10)
[2023-05-16] MEDS: INSULIN HUMULIN R 100 UNIT/ML 3ML SQ SCH ×4 (06:24→21:00)
[2023-05-16] MEDS: PANTOPRAZOLE 40 MG/VIAL IVP SCH (08:35)
[2023-05-16] MEDS: KCL 20 MEQ ERTAB PO SCH ×2 (08:38→22:00)
[2023-05-16] MEDS: Vitamin B Complex/Vit C/Folic Acid PO SCH (08:38)
[2023-05-16] MEDS: ENOXAPARIN SODIUM 30 MG/0.3 ML SQ SCH (08:39)
[2023-05-16] MEDS: LACTULOSE 20 GM/30 ML UDCUP PO PRN (19:12)
[2023-05-16] MEDS: ACETAMINOPHEN WITH CODEINE 1 TAB TAB PO PRN (19:48)
[2023-05-17] VITALS (7 sets, daily range): BP systolic 109–119; BP diastolic 59–73; PULSE 90–107; RESP 16–21; O2SAT 97–98
[2023-05-17] MEDS: INSULIN HUMULIN R 100 UNIT/ML 3ML SQ SCH ×4 (05:21→20:40)
[2023-05-17] MEDS: AMOX/CLAV 875/125MG TAB PO SCH ×2 (05:26→18:20)
[2023-05-17] MEDS: ACETAMINOPHEN WITH CODEINE 1 TAB TAB PO PRN (05:26)
[2023-05-17] MEDS: PANTOPRAZOLE 40 MG/VIAL IVP SCH (09:16)
[2023-05-17] MEDS: Vitamin B Complex/Vit C/Folic Acid PO SCH (09:17)
[2023-05-17] MEDS: KCL 20 MEQ ERTAB PO SCH ×2 (09:17→20:08)
[2023-05-17] MEDS: ENOXAPARIN SODIUM 30 MG/0.3 ML SQ SCH (09:19)
[2023-05-17] MEDS: MORPHINE 2 MG SYG IVP PRN (21:43)
[2023-05-18] VITALS (7 sets, daily range): BP systolic 99–111; BP diastolic 56–71; PULSE 87–103; RESP 16–20; O2SAT 98–99
[2023-05-18 01:52] LABS: APPEARANCE,URINE CLEAR (CLEAR); BILIRUBIN,URINE NEGATIVE (NEGATIVE); COLOR,URINE YELLOW (YELLOW); GLUCOSE, URINE (UA) NEGATIVE (NEGATIVE); KETONES,URINE NEGATIVE (NEGATIVE); LEUKOCYTE ESTERASE ,URINE 25 Leu/uL (NEGATIVE); NITRATE,URINE NEGATIVE (NEGATIVE); OCCULT BLOOD,URINE NEGATIVE (NEGATIVE); PH,URINE 5.5 (5.0-8.0); PROTEIN,URINE 20 mg/dL (NEGATIVE); UROBILINOGEN,URINE 0.2 mg/dL (0.2-1.0)
[2023-05-18 01:53] LABS: ADD UA MICROSCOPIC YES
[2023-05-18 01:54] LABS: MUCUS,URINE RARE LPF (None Seen); SQUAMOUS EPITHELIAL CELL,UR RARE /HPF (0-2)
[2023-05-18] MEDS: AMOX/CLAV 875/125MG TAB PO SCH ×2 (04:57→16:47)
[2023-05-18] MEDS: ACETAMINOPHEN WITH CODEINE 1 TAB TAB PO PRN ×2 (05:00→16:47)
[2023-05-18] MEDS: INSULIN HUMULIN R 100 UNIT/ML 3ML SQ SCH ×4 (05:23→20:36)
[2023-05-18 05:44] LABS: HEMATOCRIT 27.2 % (42-54); MEAN CORPUSCULAR HGB CONC 32.7 g/dL (32.0-36.0); MEAN CORPUSCULAR VOLUME 88.6 fL (79-99); PLATELET COUNT (AUTO) 402 K/uL (130-400); RED BLOOD CELL COUNT(AUTO) 3.07 MIL/uL (4.50-6.20); RED CELL DISTRIBUTION WIDTH 15.1 % (11.0-15.5); WHITE BLOOD COUNT (AUTO) 8.1 K/uL (4.8-10.8)
[2023-05-18 06:06] LABS: ALBUMIN 2.2 g/dL (3.5-5.0); BILIRUBIN,TOTAL 0.2 mg/dL (0.2-1.0); CREATININE 0.9 mg/dL (0.5-1.5); POTASSIUM 3.9 mmol/L (3.5-5.1); THYROID STIMULATING HORMONE 3.36 uIU/mL (0.36-3.74); TOTAL PROTEIN, SERUM 8.6 g/dL (6.0-8.3); URIC ACID 5.6 mg/dL (2.6-7.2)
[2023-05-18 06:12] LABS: BAND NEUTROPHILS % (MANUAL) 4 % (0-2); LYMPHOCYTES % (MANUAL) 32 % (22-44); MONOCYTES % (MANUAL) 12 % (2-9); SEGMENTED NEUTROPHILS % 52 % (40-70); TOTAL CELLS COUNTED 25
[2023-05-18 06:13] LABS: MAN.DIFF COMMENT-IMPRESSION MANUAL DIFFERENTIAL; PLATELET MORPHOLOGY COMMENT ADEQUATE; WBC MORPHOLOGY CONSISTENT W/DIFF
[2023-05-18] MEDS: KCL 20 MEQ ERTAB PO SCH ×2 (09:13→19:24)
[2023-05-18] MEDS: PANTOPRAZOLE 40 MG/VIAL IVP SCH (09:13)
[2023-05-18] MEDS: Vitamin B Complex/Vit C/Folic Acid PO SCH (09:13)
[2023-05-18] MEDS: ENOXAPARIN SODIUM 30 MG/0.3 ML SQ SCH (09:13)
[2023-05-18] MEDS: LACTULOSE 20 GM/30 ML UDCUP PO PRN (10:02)
[2023-05-18] MEDS: MORPHINE 2 MG SYG IVP PRN (20:36)
[2023-05-19] VITALS (7 sets, daily range): BP systolic 100–120; BP diastolic 65–76; PULSE 74–98; RESP 17–20; O2SAT 100
[2023-05-19] MEDS: AMOX/CLAV 875/125MG TAB PO SCH ×2 (05:16→17:50)
[2023-05-19] MEDS: INSULIN HUMULIN R 100 UNIT/ML 3ML SQ SCH ×4 (05:17→20:25)
[2023-05-19] MEDS: PANTOPRAZOLE 40 MG/VIAL IVP SCH (08:38)
[2023-05-19] MEDS: KCL 20 MEQ ERTAB PO SCH ×2 (08:40→20:25)
[2023-05-19] MEDS: Vitamin B Complex/Vit C/Folic Acid PO SCH (08:40)
[2023-05-19] MEDS: ENOXAPARIN SODIUM 30 MG/0.3 ML SQ SCH (08:41)
[2023-05-19] MEDS: LACTULOSE 20 GM/30 ML UDCUP PO PRN ×2 (08:44→15:08)
[2023-05-19] MEDS: ACETAMINOPHEN WITH CODEINE 1 TAB TAB PO PRN (15:09)
[2023-05-20] VITALS (8 sets, daily range): BP systolic 106–127; BP diastolic 65–77; PULSE 98–109; RESP 19–20; O2SAT 99–100
[2023-05-20] MEDS: LACTULOSE 20 GM/30 ML UDCUP PO PRN (03:14)
[2023-05-20] MEDS: AMOX/CLAV 875/125MG TAB PO SCH ×2 (05:15→18:23)
[2023-05-20 05:31] LABS: HEMATOCRIT 28.5 % (42-54); MEAN CORPUSCULAR HEMOGLOBIN 28.7 pg (27.0-33.0); MEAN CORPUSCULAR HGB CONC 32.3 g/dL (32.0-36.0); MEAN CORPUSCULAR VOLUME 88.8 fL (79-99); RED BLOOD CELL COUNT(AUTO) 3.21 MIL/uL (4.50-6.20); RED CELL DISTRIBUTION WIDTH 15.3 % (11.0-15.5); WHITE BLOOD COUNT (AUTO) 8.5 K/uL (4.8-10.8)
[2023-05-20 05:41] LABS: ALBUMIN 2.4 g/dL (3.5-5.0); BILIRUBIN,TOTAL 0.3 mg/dL (0.2-1.0); CREATININE 0.9 mg/dL (0.5-1.5); POTASSIUM 3.7 mmol/L (3.5-5.1); TOTAL PROTEIN, SERUM 8.7 g/dL (6.0-8.3)
[2023-05-20] MEDS: ENOXAPARIN SODIUM 30 MG/0.3 ML SQ SCH (08:19)
[2023-05-20] MEDS: Vitamin B Complex/Vit C/Folic Acid PO SCH (08:20)
[2023-05-20] MEDS: KCL 20 MEQ ERTAB PO SCH ×2 (08:20→20:22)
[2023-05-20] MEDS: PANTOPRAZOLE 40 MG/VIAL IVP SCH (08:20)
[2023-05-21] VITALS (7 sets, daily range): BP systolic 110–124; BP diastolic 68–74; PULSE 76–110; RESP 17–20; O2SAT 99–100
[2023-05-21] MEDS: AMOX/CLAV 875/125MG TAB PO SCH ×2 (05:28→17:53)
[2023-05-21 05:51] LABS: BASOPHILS # (AUTO) 0.02 K/uL (0.00-0.20); BASOPHILS % (AUTO) 0.3 % (0.0-5.0); EOSINOPHILS % (AUTO) 2.8 % (0.0-8.0); HEMATOCRIT 28.4 % (42-54); IMMATURE GRANULOCYTE ABSOLUTE 0.05 K/uL (0-1); LYMPHOCYTES % (AUTO) 27.6 % (21.0-51.0); MEAN CORPUSCULAR HEMOGLOBIN 28.3 pg (27.0-33.0); MEAN CORPUSCULAR HGB CONC 31.7 g/dL (32.0-36.0); MEAN CORPUSCULAR VOLUME 89.3 fL (79-99); MONOCYTES # (AUTO) 0.6 K/uL (0.1-1.0); MONOCYTES % (AUTO) 7.8 % (3.0-13.0); NEUTROPHILS # (AUTO) 4.4 K/uL (1.8-7.7); NEUTROPHILS % (AUTO) 60.8 % (40.0-77.0); PLATELET COUNT (AUTO) 386 K/uL (130-400); RED BLOOD CELL COUNT(AUTO) 3.18 MIL/uL (4.50-6.20); RED CELL DISTRIBUTION WIDTH 15.4 % (11.0-15.5); WHITE BLOOD COUNT (AUTO) 7.2 K/uL (4.8-10.8)
[2023-05-21 06:14] LABS: ALBUMIN 2.3 g/dL (3.5-5.0); BILIRUBIN,TOTAL 0.3 mg/dL (0.2-1.0); CREATININE 0.9 mg/dL (0.5-1.5); POTASSIUM 3.5 mmol/L (3.5-5.1); TOTAL PROTEIN, SERUM 8.3 g/dL (6.0-8.3)
[2023-05-21] MEDS: KCL 20 MEQ ERTAB PO SCH ×2 (08:53→20:39)
[2023-05-21] MEDS: KCL 20 MEQ ERTAB PO PRN (22:54)
[2023-05-22] VITALS (8 sets, daily range): BP systolic 112–140; BP diastolic 57–73; PULSE 82–102; RESP 17–20; O2SAT 98–99
[2023-05-22] MEDS: AMOX/CLAV 875/125MG TAB PO SCH ×2 (05:17→18:34)
[2023-05-22] MEDS: KCL 20 MEQ ERTAB PO SCH ×2 (08:35→21:28)
[2023-05-23 04:00] VITALS: BP 137/75; PULSE 91; RESP 19
[2023-05-23] MEDS: AMOX/CLAV 875/125MG TAB PO SCH ×2 (05:23→18:18)
[2023-05-23 07:43] VITALS: BP 127/84; PULSE 91; RESP 16
[2023-05-23 08:00] VITALS: O2SAT 98
[2023-05-23] MEDS: KCL 20 MEQ ERTAB PO SCH ×2 (09:32→21:05)
[2023-05-23 11:57] VITALS: BP 115/69; PULSE 98; RESP 18
[2023-05-23 16:00] VITALS: BP 119/76; PULSE 98; RESP 16
[2023-05-23 20:00] VITALS: BP 114/65; PULSE 68; RESP 20
[2023-05-24] VITALS (7 sets, daily range): BP systolic 90–119; BP diastolic 60–75; PULSE 89–99; RESP 18–20; O2SAT 98
[2023-05-24] MEDS: AMOX/CLAV 875/125MG TAB PO SCH (05:20)
[2023-05-24] MEDS ORDERED: KETOROLAC 15MG/ML VIAL (15MG/ML) IV PRN (09:00)
[2023-05-24] MEDS: KCL 20 MEQ ERTAB PO SCH ×2 (09:42→21:29)
[2023-05-24 10:15] LABS: HEMATOCRIT 28.9 % (42-54); MEAN CORPUSCULAR HEMOGLOBIN 29.1 pg (27.0-33.0); MEAN CORPUSCULAR HGB CONC 32.9 g/dL (32.0-36.0); MEAN CORPUSCULAR VOLUME 88.7 fL (79-99); RED BLOOD CELL COUNT(AUTO) 3.26 MIL/uL (4.50-6.20); RED CELL DISTRIBUTION WIDTH 15.8 % (11.0-15.5); WHITE BLOOD COUNT (AUTO) 8.7 K/uL (4.8-10.8)
[2023-05-24 10:22] LABS: CREATININE 0.9 mg/dL (0.5-1.5); POTASSIUM 3.6 mmol/L (3.5-5.1)
[2023-05-25 04:00] VITALS: BP 133/70; PULSE 92; RESP 16
[2023-05-25 08:00] VITALS: O2SAT 99
[2023-05-25 08:27] VITALS: BP 113/73; PULSE 97; RESP 20
[2023-05-25] MEDS: KCL 20 MEQ ERTAB PO SCH ×2 (09:05→21:27)
[2023-05-25 12:00] VITALS: BP 125/66; PULSE 96; RESP 19
[2023-05-25 16:00] VITALS: BP 120/70; PULSE 97; RESP 20
[2023-05-25] MEDS ORDERED: SODIUM HYPOCHLORITE 0.125% 473 ML SOLUTION TP SCH (17:00)
[2023-05-25 20:00] VITALS: BP 131/65; PULSE 103; RESP 21
[2023-05-26] VITALS (8 sets, daily range): BP systolic 103–128; BP diastolic 62–78; PULSE 95–104; RESP 17–20; O2SAT 98–99
[2023-05-26 05:02] LABS: HEMATOCRIT 29.8 % (42-54); MEAN CORPUSCULAR HEMOGLOBIN 28.7 pg (27.0-33.0); MEAN CORPUSCULAR HGB CONC 31.5 g/dL (32.0-36.0); MEAN CORPUSCULAR VOLUME 90.9 fL (79-99); RED BLOOD CELL COUNT(AUTO) 3.28 MIL/uL (4.50-6.20); RED CELL DISTRIBUTION WIDTH 15.9 % (11.0-15.5); WHITE BLOOD COUNT (AUTO) 8.3 K/uL (4.8-10.8)
[2023-05-26 05:18] LABS: POTASSIUM 3.9 mmol/L (3.5-5.1)
[2023-05-26] MEDS: KCL 20 MEQ ERTAB PO SCH (10:39)
[2023-05-27] MEDS: ACETAMINOPHEN WITH CODEINE 1 TAB TAB PO PRN (01:50)
[2023-05-27 03:00] VITALS: BP 113/76; PULSE 95; RESP 18
[2023-05-27 07:39] VITALS: BP 123/73; PULSE 79; RESP 19
[2023-05-27 08:00] VITALS: O2SAT 97
[2023-05-27] MEDS ORDERED: SODIUM HYPOCHLORITE 0.125% 473 ML SOLUTION TP SCH (09:00)
[2023-05-27 11:42] VITALS: BP 120/77; PULSE 91; RESP 18
[2023-05-27 16:00] VITALS: BP 124/68; PULSE 94; RESP 18
== END 2023-05-27 20:05 | disposition home or self-care (01) | DRG 853 ==
LOC: EDH 19:05 → EDHIP 19:06 → 4DH 04-20 01:24 → 4AH 04-20 11:00 → 2CH 04-20 11:44 → 2AH 04-23 19:38 → 3CH 04-24 15:30
PROVIDERS: ADMIT Hospitalist; ATTEND Hospitalist
PROC: 0Y950ZZ Drainage of Right Inguinal Region, Open Approach (ICD-10-PCS; 2023-04-20)
PROC: 0W960ZZ Drainage of Neck, Open Approach (ICD-10-PCS; principal; 2023-04-20 08:12)
PROC: 0JBL0ZZ Excision of Right Upper Leg Subcutaneous Tissue and Fascia, Open Approach (ICD-10-PCS; 2023-04-22)
DX: A41.9 Sepsis, unspecified organism (principal); E43 Unspecified severe protein-calorie malnutrition; N17.0 Acute kidney failure with tubular necrosis; M72.6 Necrotizing fasciitis; R65.21 Severe sepsis with septic shock; L02.214 Cutaneous abscess of groin; L02.11 Cutaneous abscess of neck; K61.1 Rectal abscess; L02.213 Cutaneous abscess of chest wall; L02.415 Cutaneous abscess of right lower limb; Z68.45 Body mass index [BMI] 70 or greater, adult; E66.01 Morbid (severe) obesity due to excess calories; D64.9 Anemia, unspecified; E11.22 Type 2 diabetes mellitus with diabetic chronic kidney disease; E87.6 Hypokalemia; G47.33 Obstructive sleep apnea (adult) (pediatric); I12.9 Hypertensive chronic kidney disease with stage 1 through stage 4 chronic kidney disease, or unspecified chronic kidney disease; I49.1 Atrial premature depolarization; Z20.822 Contact with and (suspected) exposure to COVID-19; L02.13 Carbuncle of neck; M94.0 Chondrocostal junction syndrome [Tietze]; N18.9 Chronic kidney disease, unspecified; N50.89 Other specified disorders of the male genital organs; Z82.5 Family history of asthma and other chronic lower respiratory diseases; Z91.013 Allergy to seafood; Z74.01 Bed confinement status
CPT/HCPCS: 36415; 36600; 71045; 74176; 80048; 80053; 81001; 82270; 82533; 82550; 82570; 82607; 82728; 82746; 82803; 82948; 83036; 83540; 83550; 83605; 83735; 83874; 83880; 83930; 83935; 84100; 84132; 84145; 84300; 84439; 84443; 84481; 84484; 84550; 85025; 85027; 85045; 85610; 85651; 85730; 86140; 87040; 87070; 87076; 87088; 87205; 87635; 93005; 93306; 93356; 94640; 94660; 97039; A6266; A6407; C1894; C9113; G0378; J0330; J1170; J1450; J1650; J1815; J1885; J2020; J2175; J2185; J2250; J2270; J2371; J2405; J2543; J2704; J2765; J3010; J3370; J3475; J3480; J3490; J7030; A4452; A4649; A6446; A9272

== ENCOUNTER → 2023-06-05 | Outpatient (CLI) | payer OTHER | END | disposition home or self-care (01) | LOC: WHH 08:31 | PROVIDERS: ATTEND Nurse Practitioner Family | DX: T81.89XD Other complications of procedures, not elsewhere classified, subsequent encounter (principal); L02.214 Cutaneous abscess of groin; L02.415 Cutaneous abscess of right lower limb; E11.22 Type 2 diabetes mellitus with diabetic chronic kidney disease; I12.9 Hypertensive chronic kidney disease with stage 1 through stage 4 chronic kidney disease, or unspecified chronic kidney disease; N18.9 Chronic kidney disease, unspecified; E66.01 Morbid (severe) obesity due to excess calories; F17.290 Nicotine dependence, other tobacco product, uncomplicated; Z68.44 Body mass index [BMI] 60.0-69.9, adult; Y83.8 Other surgical procedures as the cause of abnormal reaction of the patient, or of later complication, without mention of misadventure at the time of the procedure | CPT/HCPCS: 82948; 99214; A6260 ==

== ENCOUNTER → 2023-06-12 | Outpatient (CLI) | payer OTHER | END | disposition home or self-care (01) | LOC: WHH 09:03 | PROVIDERS: ATTEND Nurse Practitioner Family | DX: T81.89XD Other complications of procedures, not elsewhere classified, subsequent encounter (principal); S71.101D Unspecified open wound, right thigh, subsequent encounter; E11.622 Type 2 diabetes mellitus with other skin ulcer; L98.491 Non-pressure chronic ulcer of skin of other sites limited to breakdown of skin; L73.2 Hidradenitis suppurativa; L02.214 Cutaneous abscess of groin; L02.415 Cutaneous abscess of right lower limb; E11.22 Type 2 diabetes mellitus with diabetic chronic kidney disease; I12.9 Hypertensive chronic kidney disease with stage 1 through stage 4 chronic kidney disease, or unspecified chronic kidney disease; N18.9 Chronic kidney disease, unspecified; E66.01 Morbid (severe) obesity due to excess calories; F17.290 Nicotine dependence, other tobacco product, uncomplicated; Z68.44 Body mass index [BMI] 60.0-69.9, adult; Z79.899 Other long term (current) drug therapy; X58.XXXD Exposure to other specified factors, subsequent encounter; Y83.8 Other surgical procedures as the cause of abnormal reaction of the patient, or of later complication, without mention of misadventure at the time of the procedure | CPT/HCPCS: 99214; A6248; A4450; A6260 ==

== ENCOUNTER → 2023-06-19 | Outpatient (CLI) | payer OTHER ==
[~2023-06-19] MED LIST changes: -0.9%NACL 50ML IV SCH; +SILVER NITRATE APPLICATOR 1 SWAB TP ONE
== END | disposition home or self-care (01) ==
LOC: WHH 08:54
PROVIDERS: ATTEND Nurse Practitioner Family
DX: T81.89XD Other complications of procedures, not elsewhere classified, subsequent encounter (principal); S71.101D Unspecified open wound, right thigh, subsequent encounter; E11.622 Type 2 diabetes mellitus with other skin ulcer; L98.491 Non-pressure chronic ulcer of skin of other sites limited to breakdown of skin; L73.2 Hidradenitis suppurativa; L02.214 Cutaneous abscess of groin; L02.415 Cutaneous abscess of right lower limb; E11.22 Type 2 diabetes mellitus with diabetic chronic kidney disease; I12.9 Hypertensive chronic kidney disease with stage 1 through stage 4 chronic kidney disease, or unspecified chronic kidney disease; N18.9 Chronic kidney disease, unspecified; E66.01 Morbid (severe) obesity due to excess calories; F17.290 Nicotine dependence, other tobacco product, uncomplicated; Z68.44 Body mass index [BMI] 60.0-69.9, adult; Z79.899 Other long term (current) drug therapy; X58.XXXD Exposure to other specified factors, subsequent encounter; Y83.8 Other surgical procedures as the cause of abnormal reaction of the patient, or of later complication, without mention of misadventure at the time of the procedure
CPT/HCPCS: 17250; A6209 ×2; A4450

== ENCOUNTER → 2023-06-26 | Outpatient (CLI) | payer OTHER | END | disposition home or self-care (01) | LOC: WHH 09:00 | PROVIDERS: ATTEND Nurse Practitioner Family | DX: T81.89XD Other complications of procedures, not elsewhere classified, subsequent encounter (principal); S71.101D Unspecified open wound, right thigh, subsequent encounter; E11.622 Type 2 diabetes mellitus with other skin ulcer; L98.491 Non-pressure chronic ulcer of skin of other sites limited to breakdown of skin; L73.2 Hidradenitis suppurativa; L02.214 Cutaneous abscess of groin; L02.415 Cutaneous abscess of right lower limb; E11.22 Type 2 diabetes mellitus with diabetic chronic kidney disease; I12.9 Hypertensive chronic kidney disease with stage 1 through stage 4 chronic kidney disease, or unspecified chronic kidney disease; N18.9 Chronic kidney disease, unspecified; E66.01 Morbid (severe) obesity due to excess calories; F17.290 Nicotine dependence, other tobacco product, uncomplicated; Z68.44 Body mass index [BMI] 60.0-69.9, adult; Z79.899 Other long term (current) drug therapy; X58.XXXD Exposure to other specified factors, subsequent encounter; Y83.8 Other surgical procedures as the cause of abnormal reaction of the patient, or of later complication, without mention of misadventure at the time of the procedure | CPT/HCPCS: 99214; A6248 ==

== ENCOUNTER → 2023-07-03 | Outpatient (CLI) | payer OTHER | END | disposition home or self-care (01) | LOC: WHH 08:11 | PROVIDERS: ATTEND Nurse Practitioner Family | DX: T81.89XD Other complications of procedures, not elsewhere classified, subsequent encounter (principal); E11.622 Type 2 diabetes mellitus with other skin ulcer; L98.491 Non-pressure chronic ulcer of skin of other sites limited to breakdown of skin; L73.2 Hidradenitis suppurativa; L02.214 Cutaneous abscess of groin; L02.415 Cutaneous abscess of right lower limb; E11.22 Type 2 diabetes mellitus with diabetic chronic kidney disease; I12.9 Hypertensive chronic kidney disease with stage 1 through stage 4 chronic kidney disease, or unspecified chronic kidney disease; N18.9 Chronic kidney disease, unspecified; E66.01 Morbid (severe) obesity due to excess calories; F17.290 Nicotine dependence, other tobacco product, uncomplicated; Z68.44 Body mass index [BMI] 60.0-69.9, adult; Z79.899 Other long term (current) drug therapy; Y83.8 Other surgical procedures as the cause of abnormal reaction of the patient, or of later complication, without mention of misadventure at the time of the procedure | CPT/HCPCS: 99214; A6248; A4450 ==

== ENCOUNTER → 2023-07-17 | Outpatient (CLI) | payer OTHER | END | disposition home or self-care (01) | LOC: WHH 08:07 | PROVIDERS: ATTEND Nurse Practitioner Family | DX: T81.89XD Other complications of procedures, not elsewhere classified, subsequent encounter (principal); E11.622 Type 2 diabetes mellitus with other skin ulcer; L98.491 Non-pressure chronic ulcer of skin of other sites limited to breakdown of skin; L02.214 Cutaneous abscess of groin; L73.2 Hidradenitis suppurativa; L02.415 Cutaneous abscess of right lower limb; E11.22 Type 2 diabetes mellitus with diabetic chronic kidney disease; I12.9 Hypertensive chronic kidney disease with stage 1 through stage 4 chronic kidney disease, or unspecified chronic kidney disease; N18.9 Chronic kidney disease, unspecified; E66.01 Morbid (severe) obesity due to excess calories; F17.290 Nicotine dependence, other tobacco product, uncomplicated; Z68.44 Body mass index [BMI] 60.0-69.9, adult; Z79.899 Other long term (current) drug therapy; Y83.8 Other surgical procedures as the cause of abnormal reaction of the patient, or of later complication, without mention of misadventure at the time of the procedure | CPT/HCPCS: 17250; A6248 ==

== ENCOUNTER → 2023-07-31 | Outpatient (CLI) | payer OTHER | END | disposition home or self-care (01) | LOC: WHH 07:54 | PROVIDERS: ATTEND Nurse Practitioner Family | DX: T81.89XD Other complications of procedures, not elsewhere classified, subsequent encounter (principal); E11.622 Type 2 diabetes mellitus with other skin ulcer; L98.491 Non-pressure chronic ulcer of skin of other sites limited to breakdown of skin; L02.214 Cutaneous abscess of groin; L02.415 Cutaneous abscess of right lower limb; L73.2 Hidradenitis suppurativa; E11.22 Type 2 diabetes mellitus with diabetic chronic kidney disease; I12.9 Hypertensive chronic kidney disease with stage 1 through stage 4 chronic kidney disease, or unspecified chronic kidney disease; N18.9 Chronic kidney disease, unspecified; E66.01 Morbid (severe) obesity due to excess calories; F17.290 Nicotine dependence, other tobacco product, uncomplicated; Z68.44 Body mass index [BMI] 60.0-69.9, adult; Z79.899 Other long term (current) drug therapy; Y83.8 Other surgical procedures as the cause of abnormal reaction of the patient, or of later complication, without mention of misadventure at the time of the procedure | CPT/HCPCS: 99214; A6248; A4450; A6260 ==

== ENCOUNTER → 2023-08-14 | Outpatient (CLI) | payer OTHER | END | disposition home or self-care (01) | LOC: WHH 08:07 | PROVIDERS: ATTEND Nurse Practitioner Family | DX: T81.89XD Other complications of procedures, not elsewhere classified, subsequent encounter (principal); E11.622 Type 2 diabetes mellitus with other skin ulcer; L98.491 Non-pressure chronic ulcer of skin of other sites limited to breakdown of skin; L02.214 Cutaneous abscess of groin; L02.415 Cutaneous abscess of right lower limb; L73.2 Hidradenitis suppurativa; E11.22 Type 2 diabetes mellitus with diabetic chronic kidney disease; I12.9 Hypertensive chronic kidney disease with stage 1 through stage 4 chronic kidney disease, or unspecified chronic kidney disease; N18.9 Chronic kidney disease, unspecified; E66.01 Morbid (severe) obesity due to excess calories; F17.290 Nicotine dependence, other tobacco product, uncomplicated; Z68.44 Body mass index [BMI] 60.0-69.9, adult; Z79.899 Other long term (current) drug therapy; Y83.8 Other surgical procedures as the cause of abnormal reaction of the patient, or of later complication, without mention of misadventure at the time of the procedure | CPT/HCPCS: 99214 ==